=== PATIENT | female | born 1990 | race Caucasian/White ===

== ENCOUNTER → 2020-04-21 | Outpatient (CLI) | payer BC, OTHER ==
[~2020-04-21] MED LIST: IBUP-1060 PO; LIDO700A21 TP; OMEP40CA45 PO; ONDA4TAB7 PO; OXYC5CAP PO; PROM25TA10 PO
== END ==
LOC: LAB 14:00
PROVIDERS: ATTEND Surgery
DX: Z01.812 Encounter for preprocedural laboratory examination (principal); K82.8 Other specified diseases of gallbladder; Z20.828 Contact with and (suspected) exposure to other viral communicable diseases
CPT/HCPCS: U0003

== ENCOUNTER 2020-04-25 08:53 | Inpatient (IN) | payer BC, OTHER ==
[~2020-04-25] VITALS: Ht 157.5 cm; Wt 57.0 kg
[2020-04-25] VITALS (10 sets, daily range): BP systolic 93–117; BP diastolic 57–79
[~2020-04-25 08:53] MED LIST changes: +BISACODYL 10 MG SUPP.RECT. ONE; +BUPIVACAINE-EPI 0.5%-1:200000 MPF 30 ML VIAL. INJ ONE; +HEPARIN 1,000 UNIT in IV NORMAL SALINE 1,000 ML for SURG PERIOP IRR ONE; +IOHEXOL 300 MG/ML 50 ML VIAL. ONE; +IV RINGERS,LACTATED 1000ML 1,000 ML IV SCH; +LIDOCAINE 1% PF 2 ML VIAL. ID PRN; +MORPHINE SULFATE 2 MG/ML VIAL. IV PRN; +ONDANSETRON PF 4 MG/2 ML VIAL. IV PRN; +PROCHLORPERAZINE 10 MG/2 ML VIAL. IV PRN; +SURGICEL HEMOSTAT 4X8 EACH. ONE; +cefOXitin SODIUM IV Push 2 GM VIAL. IVP PRN; +fentaNYL PF VIAL 100 MCG/2 ML VIAL IV PRN
[2020-04-25] MEDS ORDERED: DEXAMETHASONE SOD PHOS 4 MG/ML VIAL ONE ×4 (08:58→15:34)
[2020-04-25] MEDS ORDERED: LIDOCAINE 2% PF 5 ML VIAL. ONE (08:58)
[2020-04-25] MEDS ORDERED: ONDANSETRON PF 4 MG/2 ML VIAL. ONE (08:58)
[2020-04-25] MEDS ORDERED: PROPOFOL 10 MG/ML (20ML) VIAL. IV ONE (08:58)
[2020-04-25] MEDS ORDERED: MIDAZOLAM HCL/PF 2 MG/2 ML VIAL. ONE (08:59)
[2020-04-25] MEDS ORDERED: SUCCINYLCHOLINE 200 MG/10 ML VIAL. ONE (08:59)
[2020-04-25] MEDS ORDERED: GLYCOPYRROLATE 1 MG/5 ML VIAL. ONE (09:00)
[2020-04-25] MEDS ORDERED: fentaNYL PF VIAL 100 MCG/2 ML VIAL ONE ×2 (09:00→13:20)
[2020-04-25] MEDS ORDERED: INSULIN LISPRO 100 UNIT/ML 3ML VIAL for OP,RR ONLY. SQ PRN (09:15)
--- NOTE | 2020-04-25 09:43 | PDOC ---
SURGICAL PROGRESS NOTE DATE: 04/25/20 TIME: 09:38 Subjective Pre-Op Note 29 yo F gastroparesis TO OR for laparoscopic versus open cholecystectomy with cholangiogram, pyloroplasty, exploration. R/R/B/A d/w pt and pt's supportive mother. Risks, including, but not limited to: bleeding, infection, damage to surrounding structures, risk of anesthesia, risk of not addressing symptoms. They appear to understand, their questions are answered and they elect to procee d. Office note reviewed and unchanged. Vital Signs Vital Signs Date Time Temp Pulse Resp B/P (MAP) Pulse Ox O2 Delivery O2 Flow Rate FiO2 04/25/20 09:34 97.3 94 18 100 97.3 04/25/20 09:31 108/61 Room Air Labs Laboratory Tests Test 04/25/20 09:20 Bedside Urine HCG, Qualitative Hcg negative (Negative) Laboratory Tests Test 04/25/20 09:20 Bedside Urine HCG, Qualitative Hcg negative (Negative) Justicifation of Admission Dx: Justifications for Admission: Justification of Admission Dx: Yes Comments: bowel surgery (pyloroplasty) MIKE PERRIN MD Apr 25, 2020 09:42
[2020-04-25] MEDS ORDERED: HYDROmorphone 2 MG/ML VIAL ONE ×2 (09:51→13:07)
[2020-04-25] MEDS ORDERED: NEOSTIGMINE METHYLSULFATE 5 MG/5 ML SYRINGE. ONE (10:16)
[2020-04-25] MEDS ORDERED: SEVOFLURANE > 120 MINUTES. IH ONE (10:17)
[2020-04-25] MEDS ORDERED: PHENYLEPHRINE in 0.9% NACL PF 1 MG/10 ML SYRINGE. IV ONE ×2 (10:23→10:29)
[2020-04-25] MEDS ORDERED: ePHEDrine PF IN SALINE 50 MG/10 ML SYRINGE. IV ONE (10:23)
[2020-04-25] MEDS ORDERED: diphenhydrAMINE 50 MG/ML VIAL ONE (10:29)
[2020-04-25] MEDS ORDERED: FAMOTIDINE 20 MG/2 ML VIAL ONE (10:29)
[2020-04-25] MEDS: HYDROmorphone 2 MG/ML VIAL IV PRN ×4 (13:13→13:54)
[2020-04-25] MEDS ORDERED: BISACODYL 10 MG SUPP.RECT. PR PRN (13:30)
[2020-04-25] MEDS ORDERED: 0.9 % SODIUM CHLORIDE 10 ML DISP.SYRIN. IV PRN (13:30)
[2020-04-25] MEDS: IV RINGERS,LACTATED 1000ML 1,000 ML IV SCH ×2 (13:30→23:30)
[2020-04-25] MEDS ORDERED: NALOXONE 0.4 MG/ML VIAL. IV PRN (13:30)
[2020-04-25] MEDS ORDERED: MORPHINE SULFATE 30 ML IV ONE (13:45)
[2020-04-25] MEDS: MORPHINE SULFATE 30 ML IV PRN ×3 (13:50→23:47)
[2020-04-25] MEDS ORDERED: PROCHLORPERAZINE 10 MG/2 ML VIAL. ONE (14:04)
--- NOTE | 2020-04-25 14:45 | NUR ---
Arrive to unit per bed from PACU. Awakens easily but falls back to sleep. No c/o pain at this time. Abdominal lap sites x's 4 are d/i with ice pack at site. NG to low suction. IVF's intact and infusing. O2 at 2l per n/c. MANAGER PLAY intact with MANAGER PLAY button within reach. ROB's and SCD's on bilaterally. Side rails up x's 2 with call light in reach. Cont. monitor.
[2020-04-25] MEDS: IV NORMAL SALINE 1000ML BAG 1,000 ML IV SCH (15:05)
--- NOTE | 2020-04-25 19:09 | NUR ---
When patient awakens she starts crying and states she is in awful pain. Reviewed morphine DRILL SHARPENER OPERATOR order in which it stated we could increase the dose from 0.5mg to 1mg if patient rates pain greater than 4 and patient has been rating her pain a 10. Pump changed at 1903 to the 1mg dose by this nurse and witness RN Marion Maldonado. Oncoming maintenance technician 2nd shift nurse aware and notified. Pump cleared. CO2 monitor intact and working properly. Will have oncoming shift monitor.
--- NOTE | 2020-04-25 20:06 | PDOC4 ---
OPERATIVE NOTE Date: Date: Apr 25, 2020 Pre-Op Diagnosis: Gastroparesis Post-Op Diagnosis: same Procedure Performed: Laparoscopic cholecystectomy with cholangiogram, pyloroplasty Surgeon: Topher Perrin Anesthesia Type: GETA plus local Blood Loss: 50 Specimans Obtained: gallbladder Findings: grossly normal gallbladder, normal cholangiogram, normal liver, normal stomach, spleen, uterus, appendix. Somewhat mobile right colon, somewhat redundant sigmoid colon, somewhat distended small bowel Complications: none Operative Note: After obtaining informed consent, patient was taken to OR, induced under GETA and prepped in the usual fashion. 5 mm port placed umbilical and RUQ, 12 port placed epigastric, all under laparoscopic guidance. Abdominal cavity was explored and noted as above. Gallbladder taken off fossa using cautery in dome down fashion. Cystic artery ligated with clips. Cystic duct only remaining structure into gallbladder. Longitudinal incision made on distal stomach and proximal duodenum using cautery, including through pylorus, approximately 5 cm. Transverse closure performed with 3 0 PDS in continuous fashion. 3 0 vicryl used to repair serosa. Repair appeared patent, without leakage and completely viable. Air inflated via NGT without air bubbles. Cholangiogram performed and demonstrated patency and no filling defects. Cystic duct ligated with clips and hemolok. Gallbladder placed in bag, delivered and sent to pathology. Copious irrigation. No evidence of bleeding or other pathology. Ports removed without bleeding. Fascia repaired with 0 vicryl. Skin repaired with 4 0 monocryl. Dressing placed. Patient tolerated procedure well and sent to PACU in stable condition. All counts correct. Wound class is 3. MIKE PERRIN MD Apr 25, 2020 20:06
[2020-04-25] MEDS: FAMOTIDINE 20 MG/2 ML VIAL IVP SCH (20:39)
--- NOTE | 2020-04-25 23:47 | NUR ---
ENTERTAINMENT USHER syringe changed verified by Murphy Camejo RN. syringe empty, no waste needed.
[2020-04-26] VITALS (7 sets, daily range): BP systolic 93–125; BP diastolic 55–77
--- NOTE | 2020-04-26 04:30 | NUR ---
Patient has rested on and off throughout night. GRAIN II FARMWORKER in reach. RN offered to ambulate Patient around hallways. Patient refused. Patient states "I'm okay" when RN asked Patient how she was doing. Patient declined any other needs at this time.
[2020-04-26] MEDS: MORPHINE SULFATE 30 ML IV PRN ×3 (05:57→18:34)
--- NOTE | 2020-04-26 05:57 | NUR ---
Morphine COOKER SODA syringe changed, verified with Murphy Camejo RN. 0 cc waste.
[2020-04-26] MEDS: HEPARIN for SUB-Q USE 5,000 UNIT/ML VIAL. SQ SCH ×3 (06:12→21:42)
[2020-04-26 07:39] LABS: CALCIUM 8.6 mg/dL (8.5-10.1); CREATININE 0.6 mg/dL (0.6-1.0); GFR 116.6; POTASSIUM 3.8 mmol/L (3.5-5.1)
--- NOTE | 2020-04-26 08:00 | NUR ---
resting in bed. up in the recliner. iv tubing was leaking and the bed linens need changing. moves slowly. ng remains patent with green fluid. Mendez to dd; patent with clear yellow urine. geophysical e logger 1 mg every 10 min-states she's comfortable if she hits it regularly. she is rating her pain 4.5.
[2020-04-26] MEDS: ONDANSETRON PF 4 MG/2 ML VIAL. IVP PRN ×3 (08:14→21:24)
[2020-04-26] MEDS: FAMOTIDINE 20 MG/2 ML VIAL IVP SCH ×2 (08:14→21:20)
[2020-04-26 08:15] LABS: BASO % 1 % (0-3); EOS # 0.2 x10^3/uL (0.0-0.7); EOS % 5 % (0-3); HEMATOCRIT 32.5 % (36.0-47.0); LYMPH # 1.1 x10^3/uL (1.0-4.8); LYMPH % 22 % (24-48); MEAN CORPUSCULAR HEMOGLOBIN 29 pg (25-35); MEAN CORPUSCULAR HGB CONC 34 g/dL (31-37); MEAN CORPUSCULAR VOLUME 87 fL (79-100); MONO # 0.4 x10^3/uL (0.0-1.1); MONO % 9 % (0-9); NEUT # 3.1 x10^3/uL (1.8-7.7); NEUT % 63 % (31-73); PLATELET COUNT 158 x10^3/uL (140-400); RED BLOOD COUNT 3.75 x10^6/uL (3.50-5.40); RED CELL DISTRIBUTION WIDTH 13.6 % (11.5-14.5); WHITE BLOOD COUNT 4.9 x10^3/uL (4.0-11.0)
--- NOTE | 2020-04-26 10:01 | PDOC ---
SURGICAL PROGRESS NOTE DATE: 04/26/20 TIME: 10:00 Subjective pain managed with MANAGER CLINICAL RESEARCH up in chair asking about picc Vital Signs Vital Signs Date Time Temp Pulse Resp B/P (MAP) Pulse Ox O2 Delivery O2 Flow Rate FiO2 04/26/20 08:00 Nasal Cannula 04/26/20 06:33 11 04/26/20 06:27 100 2.0 04/26/20 06:13 97.7 87 98/59 (72) 97.7 I&O Intake and Output 04/26/20 07:00 Intake Total 1700 ml Output Total 2325 ml Balance -625 ml Intake Oral 0 ml IV Total 1700 ml Output Urine Total 2250 ml Gastric Drainage Total 25 ml Estimated Blood Loss 50 ml General: Alert, Oriented X3, Cooperative HEENT: Other (NG in place ) Abdomen: Soft (soft, lap dresssings dry) Labs Laboratory Tests Test 04/25/20 09:20 04/25/20 14:34 04/26/20 07:00 Bedside Urine HCG, Qualitative Hcg negative (Negative) Glucose (Fingerstick) 110 mg/dL (70-99) White Blood Count 4.9 x10^3/uL (4.0-11.0) Red Blood Count 3.75 x10^6/uL (3.50-5.40) Hemoglobin 11.0 g/dL (12.0-15.5) Hematocrit 32.5 % (36.0-47.0) Mean Corpuscular Volume 87 fL (79-100) Mean Corpuscular Hemoglobin 29 pg (25-35) Mean Corpuscular Hemoglobin Concent 34 g/dL (31-37) Red Cell Distribution Width 13.6 % (11.5-14.5) Platelet Count 158 x10^3/uL (140-400) Neutrophils (%) (Auto) 63 % (31-73) Lymphocytes (%) (Auto) 22 % (24-48) Monocytes (%) (Auto) 9 % (0-9) Eosinophils (%) (Auto) 5 % (0-3) Basophils (%) (Auto) 1 % (0-3) Neutrophils # (Auto) 3.1 x10^3/uL (1.8-7.7) Lymphocytes # (Auto) 1.1 x10^3/uL (1.0-4.8) Monocytes # (Auto) 0.4 x10^3/uL (0.0-1.1) Eosinophils # (Auto) 0.2 x10^3/uL (0.0-0.7) Basophils # (Auto) 0.0 x10^3/uL (0.0-0.2) Sodium Level 139 mmol/L (136-145) Potassium Level 3.8 mmol/L (3.5-5.1) Chloride Level 102 mmol/L (98-107) Carbon Dioxide Level 29 mmol/L (21-32) Anion Gap 8 (6-14) Blood Urea Nitrogen 9 mg/dL (7-20) Creatinine 0.6 mg/dL (0.6-1.0) Estimated GFR (Cockcroft-Gault) 116.6 Glucose Level 93 mg/dL (70-99) Calcium Level 8.6 mg/dL (8.5-10.1) Laboratory Tests Test 04/25/20 14:34 04/26/20 07:00 Glucose (Fingerstick) 110 mg/dL (70-99) White Blood Count 4.9 x10^3/uL (4.0-11.0) Red Blood Count 3.75 x10^6/uL (3.50-5.40) Hemoglobin 11.0 g/dL (12.0-15.5) Hematocrit 32.5 % (36.0-47.0) Mean Corpuscular Volume 87 fL (79-100) Mean Corpuscular Hemoglobin 29 pg (25-35) Mean Corpuscular Hemoglobin Concent 34 g/dL (31-37) Red Cell Distribution Width 13.6 % (11.5-14.5) Platelet Count 158 x10^3/uL (140-400) Neutrophils (%) (Auto) 63 % (31-73) Lymphocytes (%) (Auto) 22 % (24-48) Monocytes (%) (Auto) 9 % (0-9) Eosinophils (%) (Auto) 5 % (0-3) Basophils (%) (Auto) 1 % (0-3) Neutrophils # (Auto) 3.1 x10^3/uL (1.8-7.7) Lymphocytes # (Auto) 1.1 x10^3/uL (1.0-4.8) Monocytes # (Auto) 0.4 x10^3/uL (0.0-1.1) Eosinophils # (Auto) 0.2 x10^3/uL (0.0-0.7) Basophils # (Auto) 0.0 x10^3/uL (0.0-0.2) Sodium Level 139 mmol/L (136-145) Potassium Level 3.8 mmol/L (3.5-5.1) Chloride Level 102 mmol/L (98-107) Carbon Dioxide Level 29 mmol/L (21-32) Anion Gap 8 (6-14) Blood Urea Nitrogen 9 mg/dL (7-20) Creatinine 0.6 mg/dL (0.6-1.0) Estimated GFR (Cockcroft-Gault) 116.6 Glucose Level 93 mg/dL (70-99) Calcium Level 8.6 mg/dL (8.5-10.1) Assessment/Plan continue NG, bowel rest will ask IR to look at picc Justicifation of Admission Dx: Justifications for Admission: Justification of Admission Dx: Yes DERIK SCHILLING BIG 6 DEALER Apr 26, 2020 10:01
[2020-04-26] MEDS: PHENOL ORAL SPRAY 177ML BOTTLE. PO PRN ×2 (10:11→12:13)
--- NOTE | 2020-04-26 10:22 | NUR ---
spoke with Denise for IR to check ou her PICC. It is 2 months old and has migrated 6-7 cm out. Blank would like to speak with Dr. Calero. she would like the same arm used. will sign consent after speaking with Dr. Calero. . IR informed
[2020-04-26] MEDS ORDERED: LIDOCAINE WITH 8.4% SOD BICARB 3 ML DISP.SYRIN. ONE (10:56)
[2020-04-26] MEDS ORDERED: LIDOCAINE WITH 8.4% SOD BICARB 3 ML DISP.SYRIN. INJ ONE (11:00)
--- NOTE | 2020-04-26 11:15 | RAD ---
Single view of the chest. 04/26/2020 10:06 AM Indication: Reason: Malpositioned picc line - / Spl. Instructions: / History: Comparison: None Findings: There is a right upper extremity PICC line with tip in the superior vena cava. No pneumothorax, effusion, or focal infiltrate is seen. Heart size is normal. Bony thorax is intact. IMPRESSION: Extremity PICC line tip in the SVC Electronically signed by: Don Calero MD (04/26/2020 11:13 AM) [id number]
--- NOTE | 2020-04-26 12:30 | NUR ---
returned from radiology. PICC was replaced in the same arm; she is happy about that. reconnected to NG to intermittent suction ivf and tire fixer restarted. rests in bed
[2020-04-26] MEDS: IV RINGERS,LACTATED 1000ML 1,000 ML IV SCH ×2 (12:39→21:24)
--- NOTE | 2020-04-26 15:47 | RAD ---
Exam: Fluoroscopic guided replacement right percutaneous inserted central venous catheter 04/26/2020 1:39 PM .Indication: picc eval--out of place Technique: Informed oral and written consent were obtained. The right upper extremity was prepped and draped using sterile barrier technique. All elements of maximal sterile barrier technique including the use of a cap, mask, sterile gown, sterile gloves, large sterile sheet, appropriate hand hygiene, and 2% chlorhexidine for cutaneous antisepsis (or acceptable alternative antiseptic per current guidelines) were followed for this procedure.. The pre existing catheter was short with tip in SVC. A guidewire was advanced through the picc line into the IVC. A new picc line was advanced over the wire into the right atrium. Catheter was found to flush and aspirate normally. No immediate complications are identified. FLUORO TIME: 0.9 MINUTES DOSE AREA PRODUCT: 09 Gycm2 Impression: fluoroscopically guided replacement of a right upper extremity PICC line.
--- NOTE | 2020-04-26 16:26 | NUR ---
When attempted to ambulate, her knee gave out and she started to hyperventilate and crying. Eventually got her to stand and traffic coordinator place. Encouraged to deep breathing. Attempted to calm her. Called Dr. Eason and discussed her concerns 1- changing her geriatric nurse practitioner to Dilaudid ; give her a bolus with morphine; and give her something for anxiety. orders received for PT/OT , consult Hospitalist for anxiety and medication for anxiety. Blank informed of these new orders
--- NOTE | 2020-04-26 16:59 | PDOC2 ---
CONSULT Date of Consult Date of Consult DATE: 04/26/20 TIME: 16:59 Reason for Consult Reason for Consult: Anxiety Referring Physician Referring Physician: Dr. 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 Her PICC line is replaced by IR and is functioning well the right she is currently on a morphine CREAMERY WORKER as institutionally we avoid Dilaudid CREAMERY WORKER's. I reinforced this. She does have some anxiety that was mitigated with IV Ativan. She tells me bedside that she knows how she should recover from surgery notes that she has had 8 surgeries in the past 3 years including 3 C-sections a cochlear implant and subsequent Baha removal of the right ear right elbow cubital tunnel release and 2 lysis of adhesions surgeries. She notes that her pain is currently 5 out of 10 drifts off to sleep frequently during the interview. I have asked her if she is on chronic opioids. She notes that she does not take chronic opioids. I have reviewed her prescription history and she has filled opioids multiple times in the past month at least monthly over the past year and a half through a variety of providers throughout the [facility] area. Labs reviewed and within normal limits. Past Medical History GI: Other (Gastroparesis) Past Surgical History Past Surgical History Right cubital tunnel, lysis of adhesions x2, right cochlear implant and BAHA removal. Past Surgical History: Cholecystectomy, (x3) Family History Family History: Other Social History No ALCOHOL: none Drugs: None Lives: with Family Domestic Violence: Neg Current Medications Current Medications Current Medications Heparin Sodium (Porcine) 1000 unit/Sodium Chloride 1,001 ml @ 1,001 mls/hr 1X ONCE IRR ; Start 04/25/20 at 06:00; Stop 04/25/20 at 06:59; Status DC Bupivacaine HCl/ Epinephrine Bitart (Sensorcain-Epi 0.5%-1:[id number] Mpf) 30 ml 1X ONCE INJ Last administered on 04/25/20at 10:37; Start 04/25/20 at 07:00; Stop 04/25/20 at 07:01; Status DC Ondansetron HCl (Zofran) 4 mg PRN Q6HRS PRN IV NAUSEA/VOMITING; Start 04/25/20 at 07:00; Stop 04/26/20 at 06:59; Status DC Fentanyl Citrate (Fentanyl 2ml Vial) 25 mcg PRN Q5MIN PRN IV MILD PAIN 1-3; Start 04/25/20 at 07:00; Stop 04/26/20 at 06:59; Status UNV Fentanyl Citrate (Fentanyl 2ml Vial) 50 mcg PRN Q5MIN PRN IV MODERATE TO SEVERE PAIN; Start 04/25/20 at 07:00; Stop 04/26/20 at 06:59; Status UNV Morphine Sulfate (Morphine Sulfate) 1 mg PRN Q10MIN PRN IV SEVERE PAIN 7-10; Start 04/25/20 at 07:00; Stop 04/26/20 at 06:59; Status DC Ringer's Solution 1,000 ml @ 30 mls/hr Q24H IV Last administered on 04/25/20at 09:37; Start 04/25/20 at 07:00; Stop 04/25/20 at 18:59; Status DC Lidocaine HCl (Xylocaine-Mpf 1% 2ml Vial) 2 ml PRN 1X PRN ID PRIOR TO IV START; Start 04/25/20 at 07:00; Stop 04/26/20 at 06:59; Status DC Hydromorphone HCl (Dilaudid) 0.5 mg PRN Q10MIN PRN IV SEV PAIN, Second choice Last administered on 04/25/20at 13:54; Start 04/25/20 at 07:00; Stop 04/26/20 at 06:59; Status DC Prochlorperazine Edisylate (Compazine) 5 mg PACU PRN PRN IV NAUSEA, MRX1 Last administered on 04/25/20at 14:09; Start 04/25/20 at 07:00; Stop 04/26/20 at 06:59; Status DC Cefoxitin Sodium (Mefoxin) 2 gm 1X PREOP PRN IVP PRIOR TO SURGERY Last administered on 04/25/20at 09:49; Start 04/25/20 at 08:00 Iohexol (Omnipaque 300 Mg/ml) 50 ml STK-MED ONCE .ROUTE Last administered on 04/25/20at 10:37; Start 04/25/20 at 07:27; Stop 04/25/20 at 07:27; Status DC Bisacodyl (Dulcolax Supp) 10 mg STK-MED ONCE .ROUTE ; Start 04/25/20 at 07:27; Stop 04/25/20 at 07:27; Status DC Cellulose (Surgicel Hemostat 4x8) 1 each STK-MED ONCE .ROUTE ; Start 04/25/20 at 07:30; Stop 04/25/20 at 07:31; Status DC Propofol (Diprivan) 200 mg STK-MED ONCE IV ; Start 04/25/20 at 08:58; Stop 04/25/20 at 08:58; Status DC Lidocaine HCl (Lidocaine Pf 2% Vial) 5 ml STK-MED ONCE .ROUTE ; Start 04/25/20 at 08:58; Stop 04/25/20 at 08:58; Status DC Dexamethasone Sodium Phosphate (Decadron) 4 mg STK-MED ONCE .ROUTE ; Start 04/25/20 at 08:58; Stop 04/25/20 at 08:58; Status DC Ondansetron HCl (Zofran) 4 mg STK-MED ONCE .ROUTE ; Start 04/25/20 at 08:58; Stop 04/25/20 at 08:58; Status DC Succinylcholine Chloride (Anectine) 200 mg STK-MED ONCE .ROUTE ; Start 04/25/20 at 08:59; Stop 04/25/20 at 08:59; Status DC Midazolam HCl (Versed) 2 mg STK-MED ONCE .ROUTE ; Start 04/25/20 at 08:59; Stop 04/25/20 at 09:00; Status DC Fentanyl Citrate (Fentanyl 2ml Vial) 100 mcg STK-MED ONCE .ROUTE ; Start 04/25/20 at 09:00; Stop 04/25/20 at 09:00; Status DC Glycopyrrolate (Robinul) 1 mg STK-MED ONCE .ROUTE ; Start 04/25/20 at 09:00; Stop 04/25/20 at 09:01; Status DC Insulin Human Lispro (HumaLOG VIAL for OP,RR ONLY) 0-10 units PRN Q1HR PRN SQ PER PROTOCOL; Start 04/25/20 at 09:15; Stop 04/26/20 at 09:14; Status DC Hydromorphone HCl (Dilaudid) 2 mg STK-MED ONCE .ROUTE ; Start 04/25/20 at 09:51; Stop 04/25/20 at 09:51; Status DC Neostigmine [place] (Neostigmine Methylsulfate) 5 mg STK-MED ONCE .ROUTE ; Start 04/25/20 at 10:16; Stop 04/25/20 at 10:17; Status DC Sevoflurane (Ultane) 90 ml STK-MED ONCE IH ; Start 04/25/20 at 10:17; Stop 04/25/20 at 10:17; Status DC Phenylephrine HCl (PHENYLEPHRINE in 0.9% NACL PF) 1 mg STK-MED ONCE IV ; Start 04/25/20 at 10:23; Stop 04/25/20 at 10:23; Status DC Ephedrine Sulfate (ePHEDrine PF IN SALINE SYRINGE) 50 mg STK-MED ONCE IV ; Start 04/25/20 at 10:23; Stop 04/25/20 at 10:23; Status DC Phenylephrine HCl (PHENYLEPHRINE in 0.9% NACL PF) 1 mg STK-MED ONCE IV ; Start 04/25/20 at 10:29; Stop 04/25/20 at 10:29; Status DC Diphenhydramine HCl (Benadryl) 50 mg STK-MED ONCE .ROUTE ; Start 04/25/20 at 10:29; Stop 04/25/20 at 10:29; Status DC Famotidine (Pepcid Vial) 20 mg STK-MED ONCE .ROUTE ; Start 04/25/20 at 10:29; Stop 04/25/20 at 10:29; Status DC Dexamethasone Sodium Phosphate (Decadron) 4 mg STK-MED ONCE .ROUTE ; Start 04/25/20 at 10:29; Stop 04/25/20 at 10:29; Status DC Dexamethasone Sodium Phosphate (Decadron) 4 mg STK-MED ONCE .ROUTE ; Start 04/25/20 at 10:29; Stop 04/25/20 at 10:29; Status DC Hydromorphone HCl (Dilaudid) 2 mg STK-MED ONCE .ROUTE ; Start 04/25/20 at 13:07; Stop 04/25/20 at 13:07; Status DC Fentanyl Citrate (Fentanyl 2ml Vial) 100 mcg STK-MED ONCE .ROUTE ; Start 04/25/20 at 13:20; Stop 04/25/20 at 13:20; Status DC Famotidine (Pepcid Vial) 20 mg BID IVP Last administered on 04/26/20at 08:14; Start 04/25/20 at 21:00 Heparin Sodium (Porcine) (Heparin Sodium) 5,000 unit Q8HRS SQ Last administered on 04/26/20at 14:27; Start 04/26/20 at 06:00 Sodium Chloride (Normal Saline Flush) 3 ml QSHIFT PRN IV AFTER MEDS AND BLOOD DRAWS; Start 04/25/20 at 13:30 Ringer's Solution 1,000 ml @ 100 mls/hr Q10H IV Last administered on 04/26/20at 12:39; Start 04/25/20 at 13:30 Naloxone HCl (Narcan) 0.4 mg PRN Q2MIN PRN IV SEE INSTRUCTIONS; Start 04/25/20 at 13:30 Sodium Chloride 1,000 ml @ 25 mls/hr Q24H IV Last administered on 04/25/20at 15:05; Start 04/25/20 at 13:30 Morphine Sulfate 30 ml @ 0 mls/hr CONT PRN PRN IV PER PROTOCOL Last administered on 04/26/20at 12:13; Start 04/25/20 at 13:30 Bisacodyl (Dulcolax Supp) 10 mg PRN DAILY PRN IN CONSTIPATION; Start 04/25/20 at 13:30 Ondansetron HCl (Zofran) 4 mg PRN Q6HRS PRN IVP NAUESA, 1ST CHOICE Last administered on 04/26/20at 14:41; Start 04/25/20 at 13:30 Prochlorperazine Edisylate (Compazine) 10 mg STK-MED ONCE .ROUTE ; Start 04/25/20 at 14:04; Stop 04/25/20 at 14:04; Status DC Morphine Sulfate 30 ml @ As Directed STK-MED ONCE IV ; Start 04/25/20 at 13:45; Stop 04/25/20 at 14:09; Status DC Dexamethasone Sodium Phosphate (Decadron) 4 mg STK-MED ONCE .ROUTE ; Start 04/25/20 at 15:34; Stop 04/25/20 at 15:34; Status DC Phenol (Chloraseptic) 1 spray PRN Q2HR PRN PO SORE THROAT Last administered on 04/26/20at 12:13; Start 04/26/20 at 10:00 Lidocaine HCl (Buffered Lidocaine 1%) 3 ml STK-MED ONCE .ROUTE ; Start 04/26/20 at 10:56; Stop 04/26/20 at 10:56; Status DC Lidocaine HCl (Buffered Lidocaine 1%) 6 ml 1X ONCE INJ Last administered on 04/26/20at 11:00; Start 04/26/20 at 11:00; Stop 04/26/20 at 11:01; Status DC Lorazepam (Ativan Inj) 0.5 mg PRN Q6HRS PRN IVP ANXIETY / AGITATION; Start 04/26/20 at 16:30 Haloperidol Lactate (Haldol Inj) 5 mg PRN Q6HRS PRN IVP AGITATION; Start 04/26/20 at 17:00 Olanzapine (ZyPREXA IM) 10 mg PRN DAILY PRN IM Agitation/anxiety; Start 1 06/26/19 at 17:00 Active Scripts Active Reported Lidocaine PATCH (Lidocaine) 1 Each Adh..patch 1 Each TP DAILY REMOVE AFTER 12 HOURS Promethazine Hcl 25 Mg Tablet 1 Tab PO PRN Q6HRS Omeprazole 40 Mg Capsule.dr 1 Cap PO DAILY Zofran (Ondansetron Hcl) 4 Mg Tablet 1 Tab PO PRN Q6-8HRS Oxycodone Hcl 5 Mg Capsule 5 Mg PO PRN Q6HRS PRN Ibuprofen 800 Mg Tablet 800 Mg PO PRN Q6HRS PRN Allergies Allergies: Coded Allergies: iohexol (Verified Allergy, Severe, ANAPHYLAXIS, 04/25/20) acetaminophen (Verified Allergy, Intermediate, Itching, 04/25/20) irritability fentanyl (Verified Allergy, Intermediate, Hives, 04/25/20) hydrocodone (Verified Allergy, Intermediate, Itching, 04/25/20) irritability metoclopramide (Verified Adverse Reaction, Intermediate, severe depression, 04/25/20) ROS General: No: Chills, Night Sweats, Fatigue, Malaise, Appetite, Other PSYCHOLOGICAL ROS: YES: Anxiety; No: Behavioral Disorder, Concentration difficultie, Decreased libido, Depression, Disorientation, Hallucinations, Hostility, Irritablity, Memory difficulties, Mood Swings, Obsessive thoughts, Physical abuse, Sexual abuse, Sleep disturbances, Suicidal ideation, Other Eyes: No Blurry vision, No Decreased vision, No Double vision, No Dry eyes, No Excessive tearing, No Eye Pain, No Itchy Eyes, No Loss of vision, No Photophobia, No Scotomata, No Uses contacts, No Uses glasses, No Other HEENT: No: Heacaches, Visual Changes, Hearing change, Nasal congestion, Nasal discharge, Oral lesions, Sinus pain, Sore Throat, Epistaxis, Sneezing, Snoring, Tinnitus, Vertigo, Vocal changes, Other ALLERGY AND IMMUNOLOGY: No: Hives, Insect Bite Sensitivity, Itchy/Watery Eyes, Nasal Congestion, Post Nasal Drip, Seasonal Allergies, Other Hematological and Lymphatic: No: Bleeding Problems, Blood Clots, Blood Transfusions, Brusing, Night Sweats, Pallor, Swollen Lymph Nodes, Other ENDOCRINE: No: Breast Changes, Galactorrhea, Hair Pattern Changes, Hot Flashes, Malaise/lethargy, Mood Swings, Palpitations, Polydipsia/polyuria, Skin Changes, Temperature Intolerance, Unexpected Weight Changes, Other Breast: No New/Changing Breast Lumps, No Nipple changes, No Nipple discharge, No Other Respiratory: No: Cough, Hemoptysis, Orthopnea, Pleuritic Pain, Shortness of breath, SOB with excertion, Sputum Changes, Stridor, Tachypnea, Wheezing, Other Cardiovascular: No Chest Pain, No Palpitations, No Orthopnea, No Paroxysmal Noc. Dyspnea, No Edema, No Lt Headedness, No Other Gastrointestinal: Yes Abdominal Pain; No Nausea, No Vomiting, No Diarrhea, No Constipation, No Melena, No Hematochezia, No Other Genitourinary: No Dysuria, No Frequency, No Incontinence, No Hematuria, No Retention, No Discharge, No Urgency, No Pain, No Flank Pain, No Other, No , No , No , No , No , No , No Musculoskeletal: No Gait Disturbance, No Joint Pain, No Joint Stiffness, No Joint Swelling, No Muscle Pain, No Muscular Weakness, No Pain In:, No Swelling In:, No Other Neurological: No Behavorial Changes, No Bowel/Bladder ControlChng, No Confusion, No Dizziness, No Gait Disturbance, No Headaches, No Impaired Coord/balance, No Memory Loss, No Numbness/Tingling, No Seizures, No Speech Problems, No Tremors, No Visual Changes, No Weakness, No Other Skin: No Dry Skin, No Eczema, No Hair Changes, No Lumps, No Mole Changes, No Mottling, No Nail Changes, No Pruritus, No Rash, No Skin Lesion Changes, No Other, No Acne Physical Exam General: Alert, Oriented X3, Cooperative, No acute distress HEENT: Atraumatic, PERRLA, EOMI, Mucous membr. moist/pink Lungs: Clear to auscultation, Normal air movement Heart: Regular rate, Normal S1, Normal S2, No murmurs Abdomen: Normal bowel sounds, Soft, No hepatosplenomegaly, No masses Extremities: No clubbing, No edema, Normal pulses, No tenderness/swelling Skin: No rashes, No breakdown Neuro: Normal speech, Strength at 5/5 X4 ext, Normal tone, Sensation intact, Cranial nerves 3-12 NL, Reflexes 2+ Psych/Mental Status: Mental status NL, Mood NL MUSCULOSKELETAL: No joint tenderness, No deformity, No swelling, No muscular tenderness noted, Full range of motion without pain Vitals VITALS Vital Signs Date Time Temp Pulse Resp B/P (MAP) Pulse Ox O2 Delivery O2 Flow Rate FiO2 04/26/20 14:49 105 6 113/77 (89) 100 Room Air 1.0 04/26/20 11:00 97.9 97.9 Labs Labs Laboratory Tests Test 04/25/20 09:20 04/25/20 14:34 04/26/20 07:00 Bedside Urine HCG, Qualitative Hcg negative (Negative) Glucose (Fingerstick) 110 mg/dL (70-99) White Blood Count 4.9 x10^3/uL (4.0-11.0) Red Blood Count 3.75 x10^6/uL (3.50-5.40) Hemoglobin 11.0 g/dL (12.0-15.5) Hematocrit 32.5 % (36.0-47.0) Mean Corpuscular Volume 87 fL (79-100) Mean Corpuscular Hemoglobin 29 pg (25-35) Mean Corpuscular Hemoglobin Concent 34 g/dL (31-37) Red Cell Distribution Width 13.6 % (11.5-14.5) Platelet Count 158 x10^3/uL (140-400) Neutrophils (%) (Auto) 63 % (31-73) Lymphocytes (%) (Auto) 22 % (24-48) Monocytes (%) (Auto) 9 % (0-9) Eosinophils (%) (Auto) 5 % (0-3) Basophils (%) (Auto) 1 % (0-3) Neutrophils # (Auto) 3.1 x10^3/uL (1.8-7.7) Lymphocytes # (Auto) 1.1 x10^3/uL (1.0-4.8) Monocytes # (Auto) 0.4 x10^3/uL (0.0-1.1) Eosinophils # (Auto) 0.2 x10^3/uL (0.0-0.7) Basophils # (Auto) 0.0 x10^3/uL (0.0-0.2) Sodium Level 139 mmol/L (136-145) Potassium Level 3.8 mmol/L (3.5-5.1) Chloride Level 102 mmol/L (98-107) Carbon Dioxide Level 29 mmol/L (21-32) Anion Gap 8 (6-14) Blood Urea Nitrogen 9 mg/dL (7-20) Creatinine 0.6 mg/dL (0.6-1.0) Estimated GFR (Cockcroft-Gault) 116.6 Glucose Level 93 mg/dL (70-99) Calcium Level 8.6 mg/dL (8.5-10.1) Laboratory Tests Test 04/26/20 07:00 White Blood Count 4.9 x10^3/uL (4.0-11.0) Red Blood Count 3.75 x10^6/uL (3.50-5.40) Hemoglobin 11.0 g/dL (12.0-15.5) Hematocrit 32.5 % (36.0-47.0) Mean Corpuscular Volume 87 fL (79-100) Mean Corpuscular Hemoglobin 29 pg (25-35) Mean Corpuscular Hemoglobin Concent 34 g/dL (31-37) Red Cell Distribution Width 13.6 % (11.5-14.5) Platelet Count 158 x10^3/uL (140-400) Neutrophils (%) (Auto) 63 % (31-73) Lymphocytes (%) (Auto) 22 % (24-48) Monocytes (%) (Auto) 9 % (0-9) Eosinophils (%) (Auto) 5 % (0-3) Basophils (%) (Auto) 1 % (0-3) Neutrophils # (Auto) 3.1 x10^3/uL (1.8-7.7) Lymphocytes # (Auto) 1.1 x10^3/uL (1.0-4.8) Monocytes # (Auto) 0.4 x10^3/uL (0.0-1.1) Eosinophils # (Auto) 0.2 x10^3/uL (0.0-0.7) Basophils # (Auto) 0.0 x10^3/uL (0.0-0.2) Sodium Level 139 mmol/L (136-145) Potassium Level 3.8 mmol/L (3.5-5.1) Chloride Level 102 mmol/L (98-107) Carbon Dioxide Level 29 mmol/L (21-32) Anion Gap 8 (6-14) Blood Urea Nitrogen 9 mg/dL (7-20) Creatinine 0.6 mg/dL (0.6-1.0) Estimated GFR (Cockcroft-Gault) 116.6 Glucose Level 93 mg/dL (70-99) Calcium Level 8.6 mg/dL (8.5-10.1) Assessment/Plan Assessment/Plan A/P: Gastroparesis - S/p pyloroplasty. I advised her that I could discuss basal pain control but considering her diagnosis of gastroparesis this would likely be inappropriate as one of the many causes of gastroparesis is in fact chronic opio id use. Anxiety - improved with ativan, prn zyprex and prn haldol are available as well Right ear deafness - congenital FEN - NPO PPX - SCDs FULL CODE Dispo - cont inpatient. Thank you for the consult, we will continue to follow. for any questions 23/12 TRISTIN SMITH MD Apr 26, 2020 16:59
[2020-04-26] MEDS ORDERED: HALOPERIDOL LACTATE 5 MG/ML VIAL. IVP PRN (17:00)
[2020-04-26] MEDS ORDERED: OLANZapine IM 10 MG VIAL. IM PRN (17:00)
[2020-04-26] MEDS: IV NORMAL SALINE 1000ML BAG 1,000 ML IV SCH (21:20)
[2020-04-27] MEDS ORDERED: PROCHLORPERAZINE 10 MG/2 ML VIAL. IV ONE (02:45)
[2020-04-27 03:00] VITALS: BP 91/57
[2020-04-27] MEDS: MORPHINE SULFATE 30 ML IV PRN ×2 (05:31→13:21)
[2020-04-27] MEDS: IV RINGERS,LACTATED 1000ML 1,000 ML IV SCH ×4 (06:34→21:45)
[2020-04-27] MEDS: HEPARIN for SUB-Q USE 5,000 UNIT/ML VIAL. SQ SCH ×3 (06:34→21:48)
--- NOTE | 2020-04-27 06:41 | NUR ---
pt drowsy all night, patient refused sharma out per Dr Eason's order, pt educated regarding sharma cath infection risk, but still refused ,pt ssted she don't think she'll be able to get out of bed.
[2020-04-27 07:00] VITALS: BP 95/62
[2020-04-27] MEDS: FAMOTIDINE 20 MG/2 ML VIAL IVP SCH ×2 (08:46→20:55)
[2020-04-27 11:00] VITALS: BP_SYST 139; BP_SYST 97; BP_DIAS 59; BP_DIAS 73
[2020-04-27] MEDS: IV NORMAL SALINE 1000ML BAG 1,000 ML IV SCH (13:30)
--- NOTE | 2020-04-27 14:31 | PDOC ---
SURGICAL PROGRESS NOTE DATE: 04/27/20 TIME: 14:30 Subjective Pt more awake today, nausea, no flatus Vital Signs Vital Signs Date Time Temp Pulse Resp B/P (MAP) Pulse Ox O2 Delivery O2 Flow Rate FiO2 04/27/20 13:52 Room Air 04/27/20 11:00 98.8 95 16 97/73 (81) 96 98.8 04/27/20 07:25 2.0 I&O Intake and Output 04/27/20 07:00 Intake Total 0 ml Output Total 1500 ml Balance -1500 ml Intake Oral 0 ml Output Urine Total 1100 ml Gastric Drainage Total 400 ml General: Alert, Oriented X3, Cooperative, No acute distress Abdomen: Soft, No tenderness, Other (inciisions c/d/i) Labs Laboratory Tests Test 04/25/20 14:34 04/26/20 07:00 Glucose (Fingerstick) 110 mg/dL (70-99) White Blood Count 4.9 x10^3/uL (4.0-11.0) Red Blood Count 3.75 x10^6/uL (3.50-5.40) Hemoglobin 11.0 g/dL (12.0-15.5) Hematocrit 32.5 % (36.0-47.0) Mean Corpuscular Volume 87 fL (79-100) Mean Corpuscular Hemoglobin 29 pg (25-35) Mean Corpuscular Hemoglobin Concent 34 g/dL (31-37) Red Cell Distribution Width 13.6 % (11.5-14.5) Platelet Count 158 x10^3/uL (140-400) Neutrophils (%) (Auto) 63 % (31-73) Lymphocytes (%) (Auto) 22 % (24-48) Monocytes (%) (Auto) 9 % (0-9) Eosinophils (%) (Auto) 5 % (0-3) Basophils (%) (Auto) 1 % (0-3) Neutrophils # (Auto) 3.1 x10^3/uL (1.8-7.7) Lymphocytes # (Auto) 1.1 x10^3/uL (1.0-4.8) Monocytes # (Auto) 0.4 x10^3/uL (0.0-1.1) Eosinophils # (Auto) 0.2 x10^3/uL (0.0-0.7) Basophils # (Auto) 0.0 x10^3/uL (0.0-0.2) Sodium Level 139 mmol/L (136-145) Potassium Level 3.8 mmol/L (3.5-5.1) Chloride Level 102 mmol/L (98-107) Carbon Dioxide Level 29 mmol/L (21-32) Anion Gap 8 (6-14) Blood Urea Nitrogen 9 mg/dL (7-20) Creatinine 0.6 mg/dL (0.6-1.0) Estimated GFR (Cockcroft-Gault) 116.6 Glucose Level 93 mg/dL (70-99) Calcium Level 8.6 mg/dL (8.5-10.1) Problem List s/p lap hugo, pyloroplasty d/w and appreciate hospitalists await bowel fxn encouraged minimize pain meds. Justicifation of Admission Dx: Justifications for Admission: Justification of Admission Dx: Yes MIKE PERRIN MD Apr 27, 2020 14:31
[2020-04-27 15:00] VITALS: BP 106/74
[2020-04-27] MEDS ORDERED: METHOCARBAMOL 750 MG TABLET PO PRN (15:30)
--- NOTE | 2020-04-27 15:32 | NUR ---
Pt. stated she had to use the bathroom. Refused BSC, pt ambulated to bathroom with assistance of RN and . Upon entering the bathroom, pt's knees buckled and she stated "I think I am gonna pass out". Pt. did not pass out, pt sat in chair. VS 123/73, HR 116, 97% RA. Dr. Macedo witnessed event, spoke to pt, stated he would place orders.
--- NOTE | 2020-04-27 15:40 | PDOC ---
PROGRESS NOTES Date of Service: DATE: 04/27/20 TIME: 15:39 Chief Complaint Chief Complaint Gastroparesis - S/p pyloroplasty. I advised her that I could discuss basal pain control but considering her diagnosis of gastroparesis this would likely be inappropriate as one of the many causes of gastroparesis is in fact chronic opioid use. Anxiety - improved with ativan, prn zyprex and prn haldol are available as well Right ear deafness - congenital Headache: We will provide symptomatic relief Compazine and muscle relaxant since it seems to be cervical cephalalgia FEN - NPO PPX - SCDs FULL CODE Dispo - cont inpatient. History of Present Illness History of Present Illness 04/27/2020: Patient sitting in chair in moderate distress. Patient has an NG tube in place. Agree with Dr. Ring's assessment and for gastroparesis will certainly not improve if she continues to take narcotic medication. Reassurance has been provided discussed with RN at bedside Vitals Vitals Vital Signs Date Time Temp Pulse Resp B/P (MAP) Pulse Ox O2 Delivery O2 Flow Rate FiO2 04/27/20 13:52 Room Air 04/27/20 11:00 98.8 95 16 97/73 (81) 96 98.8 04/27/20 07:25 2.0 Physical Exam General: Alert, Oriented X3, Cooperative, No acute distress Heart: Regular rate, Normal S1, Normal S2, No murmurs Abdomen: Soft, No tenderness, Other (inciisions c/d/i) Extremities: No clubbing, No edema, Normal pulses, No tenderness/swelling Skin: No rashes, No breakdown Comment Review of Relevant I have reviewed the following items yessy (where applicable) has been applied. Labs Laboratory Tests Test 04/26/20 07:00 White Blood Count 4.9 x10^3/uL (4.0-11.0) Red Blood Count 3.75 x10^6/uL (3.50-5.40) Hemoglobin 11.0 g/dL (12.0-15.5) Hematocrit 32.5 % (36.0-47.0) Mean Corpuscular Volume 87 fL (79-100) Mean Corpuscular Hemoglobin 29 pg (25-35) Mean Corpuscular Hemoglobin Concent 34 g/dL (31-37) Red Cell Distribution Width 13.6 % (11.5-14.5) Platelet Count 158 x10^3/uL (140-400) Neutrophils (%) (Auto) 63 % (31-73) Lymphocytes (%) (Auto) 22 % (24-48) Monocytes (%) (Auto) 9 % (0-9) Eosinophils (%) (Auto) 5 % (0-3) Basophils (%) (Auto) 1 % (0-3) Neutrophils # (Auto) 3.1 x10^3/uL (1.8-7.7) Lymphocytes # (Auto) 1.1 x10^3/uL (1.0-4.8) Monocytes # (Auto) 0.4 x10^3/uL (0.0-1.1) Eosinophils # (Auto) 0.2 x10^3/uL (0.0-0.7) Basophils # (Auto) 0.0 x10^3/uL (0.0-0.2) Sodium Level 139 mmol/L (136-145) Potassium Level 3.8 mmol/L (3.5-5.1) Chloride Level 102 mmol/L (98-107) Carbon Dioxide Level 29 mmol/L (21-32) Anion Gap 8 (6-14) Blood Urea Nitrogen 9 mg/dL (7-20) Creatinine 0.6 mg/dL (0.6-1.0) Estimated GFR (Cockcroft-Gault) 116.6 Glucose Level 93 mg/dL (70-99) Calcium Level 8.6 mg/dL (8.5-10.1) Medications Current Medications Heparin Sodium (Porcine) 1000 unit/Sodium Chloride 1,001 ml @ 1,001 mls/hr 1X ONCE IRR ; Start 04/25/20 at 06:00; Stop 04/25/20 at 06:59; Status DC Bupivacaine HCl/ Epinephrine Bitart (Sensorcain-Epi 0.5%-1:406467 Mpf) 30 ml 1X ONCE INJ Last administered on 04/25/20at 10:37; Start 04/25/20 at 07:00; Stop 04/25/20 at 07:01; Status DC Ondansetron HCl (Zofran) 4 mg PRN Q6HRS PRN IV NAUSEA/VOMITING; Start 04/25/20 at 07:00; Stop 04/26/20 at 06:59; Status DC Fentanyl Citrate (Fentanyl 2ml Vial) 25 mcg PRN Q5MIN PRN IV MILD PAIN 1-3; Start 04/25/20 at 07:00; Stop 04/26/20 at 06:59; Status UNV Fentanyl Citrate (Fentanyl 2ml Vial) 50 mcg PRN Q5MIN PRN IV MODERATE TO SEVERE PAIN; Start 04/25/20 at 07:00; Stop 04/26/20 at 06:59; Status UNV Morphine Sulfate (Morphine Sulfate) 1 mg PRN Q10MIN PRN IV SEVERE PAIN 7-10; Start 04/25/20 at 07:00; Stop 04/26/20 at 06:59; Status DC Ringer's Solution 1,000 ml @ 30 mls/hr Q24H IV Last administered on 04/25/20at 09:37; Start 04/25/20 at 07:00; Stop 04/25/20 at 18:59; Status DC Lidocaine HCl (Xylocaine-Mpf 1% 2ml Vial) 2 ml PRN 1X PRN ID PRIOR TO IV START; Start 04/25/20 at 07:00; Stop 04/26/20 at 06:59; Status DC Hydromorphone HCl (Dilaudid) 0.5 mg PRN Q10MIN PRN IV SEV PAIN, Second choice Last administered on 04/25/20at 13:54; Start 04/25/20 at 07:00; Stop 04/26/20 at 06:59; Status DC Prochlorperazine Edisylate (Compazine) 5 mg PACU PRN PRN IV NAUSEA, MRX1 Last administered on 04/25/20at 14:09; Start 04/25/20 at 07:00; Stop 04/26/20 at 06:59; Status DC Cefoxitin Sodium (Mefoxin) 2 gm 1X PREOP PRN IVP PRIOR TO SURGERY Last administered on 04/25/20at 09:49; Start 04/25/20 at 08:00; Stop 04/27/20 at 11:06; Status DC Iohexol (Omnipaque 300 Mg/ml) 50 ml STK-MED ONCE .ROUTE Last administered on 04/25/20at 10:37; Start 04/25/20 at 07:27; Stop 04/25/20 at 07:27; Status DC Bisacodyl (Dulcolax Supp) 10 mg STK-MED ONCE .ROUTE ; Start 04/25/20 at 07:27; Stop 04/25/20 at 07:27; Status DC Cellulose (Surgicel Hemostat 4x8) 1 each STK-MED ONCE .ROUTE ; Start 04/25/20 at 07:30; Stop 04/25/20 at 07:31; Status DC Propofol (Diprivan) 200 mg STK-MED ONCE IV ; Start 04/25/20 at 08:58; Stop 04/25/20 at 08:58; Status DC Lidocaine HCl (Lidocaine Pf 2% Vial) 5 ml STK-MED ONCE .ROUTE ; Start 04/25/20 at 08:58; Stop 04/25/20 at 08:58; Status DC Dexamethasone Sodium Phosphate (Decadron) 4 mg STK-MED ONCE .ROUTE ; Start at 08:58; Stop 04/25/20 at 08:58; Status DC Ondansetron HCl (Zofran) 4 mg STK-MED ONCE .ROUTE ; Start 04/25/20 at 08:58; Stop 04/25/20 at 08:58; Status DC Succinylcholine Chloride (Anectine) 200 mg STK-MED ONCE .ROUTE ; Start 04/25/20 at 08:59; Stop 04/25/20 at 08:59; Status DC Midazolam HCl (Versed) 2 mg STK-MED ONCE .ROUTE ; Start 04/25/20 at 08:59; Stop 04/25/20 at 09:00; Status DC Fentanyl Citrate (Fentanyl 2ml Vial) 100 mcg STK-MED ONCE .ROUTE ; Start 04/25/20 at 09:00; Stop 04/25/20 at 09:00; Status DC Glycopyrrolate (Robinul) 1 mg STK-MED ONCE .ROUTE ; Start 04/25/20 at 09:00; Stop 04/25/20 at 09:01; Status DC Insulin Human Lispro (HumaLOG VIAL for OP,RR ONLY) 0-10 units PRN Q1HR PRN SQ PER PROTOCOL; Start 04/25/20 at 09:15; Stop 04/26/20 at 09:14; Status DC Hydromorphone HCl (Dilaudid) 2 mg STK-MED ONCE .ROUTE ; Start 04/25/20 at 09:51; Stop 04/25/20 at 09:51; Status DC Neostigmine [place] (Neostigmine Methylsulfate) 5 mg STK-MED ONCE .ROUTE ; Start 04/25/20 at 10:16; Stop 04/25/20 at 10:17; Status DC Sevoflurane (Ultane) 90 ml STK-MED ONCE IH ; Start 04/25/20 at 10:17; Stop 04/25/20 at 10:17; Status DC Phenylephrine HCl (PHENYLEPHRINE in 0.9% NACL PF) 1 mg STK-MED ONCE IV ; Start 04/25/20 at 10:23; Stop 04/25/20 at 10:23; Status DC Ephedrine Sulfate (ePHEDrine PF IN SALINE SYRINGE) 50 mg STK-MED ONCE IV ; Start 04/25/20 at 10:23; Stop 04/25/20 at 10:23; Status DC Phenylephrine HCl (PHENYLEPHRINE in 0.9% NACL PF) 1 mg STK-MED ONCE IV ; Start 04/25/20 at 10:29; Stop 04/25/20 at 10:29; Status DC Diphenhydramine HCl (Benadryl) 50 mg STK-MED ONCE .ROUTE ; Start 04/25/20 at 10:29; Stop 04/25/20 at 10:29; Status DC Famotidine (Pepcid Vial) 20 mg STK-MED ONCE .ROUTE ; Start 04/25/20 at 10:29; Stop 04/25/20 at 10:29; Status DC Dexamethasone Sodium Phosphate (Decadron) 4 mg STK-MED ONCE .ROUTE ; Start 04/25/20 at 10:29; Stop 04/25/20 at 10:29; Status DC Dexamethasone Sodium Phosphate (Decadron) 4 mg STK-MED ONCE .ROUTE ; Start 04/25/20 at 10:29; Stop 04/25/20 at 10:29; Status DC Hydromorphone HCl (Dilaudid) 2 mg STK-MED ONCE .ROUTE ; Start 04/25/20 at 13:07; Stop 04/25/20 at 13:07; Status DC Fentanyl Citrate (Fentanyl 2ml Vial) 100 mcg STK-MED ONCE .ROUTE ; Start 04/25/20 at 13:20; Stop 04/25/20 at 13:20; Status DC Famotidine (Pepcid Vial) 20 mg BID IVP Last administered on 04/27/20at 08:46; Start 04/25/20 at 21:00 Heparin Sodium (Porcine) (Heparin Sodium) 5,000 unit Q8HRS SQ Last administered on 04/27/20at 14:11; Start 04/26/20 at 06:00 Sodium Chloride (Normal Saline Flush) 3 ml QSHIFT PRN IV AFTER MEDS AND BLOOD DRAWS; Start 04/25/20 at 13:30 Ringer's Solution 1,000 ml @ 125 mls/hr Q8H IV Last administered on 04/27/20at 14:07; Start 04/25/20 at 13:30 Naloxone HCl (Narcan) 0.4 mg PRN Q2MIN PRN IV SEE INSTRUCTIONS; Start 04/25/20 at 13:30 Sodium Chloride 1,000 ml @ 25 mls/hr Q24H IV Last administered on 04/26/20at 21:20; Start 04/25/20 at 13:30 Morphine Sulfate 30 ml @ 0 mls/hr CONT PRN PRN IV PER PROTOCOL Last administered on 04/27/20at 13:21; Start 04/25/20 at 13:30 Bisacodyl (Dulcolax Supp) 10 mg PRN DAILY PRN IN CONSTIPATION; Start 04/25/20 at 13:30 Ondansetron HCl (Zofran) 4 mg PRN Q6HRS PRN IVP NAUESA, 1ST CHOICE Last administered on 04/26/20at 21:24; Start 04/25/20 at 13:30 Prochlorperazine Edisylate (Compazine) 10 mg STK-MED ONCE .ROUTE ; Start 04/25/20 at 14:04; Stop 04/25/20 at 14:04; Status DC Morphine Sulfate 30 ml @ As Directed STK-MED ONCE IV ; Start 04/25/20 at 13:45; Stop 04/25/20 at 14:09; Status DC Dexamethasone Sodium Phosphate (Decadron) 4 mg STK-MED ONCE .ROUTE ; Start 04/25/20 at 15:34; Stop 04/25/20 at 15:34; Status DC Phenol (Chloraseptic) 1 spray PRN Q2HR PRN PO SORE THROAT Last administered on 04/26/20at 12:13; Start 04/26/20 at 10:00 Lidocaine HCl (Buffered Lidocaine 1%) 3 ml STK-MED ONCE .ROUTE ; Start 04/26/20 at 10:56; Stop 04/26/20 at 10:56; Status DC Lidocaine HCl (Buffered Lidocaine 1%) 6 ml 1X ONCE INJ Last administered on 04/26/20at 11:00; Start 04/26/20 at 11:00; Stop 04/26/20 at 11:01; Status DC Lorazepam (Ativan Inj) 0.5 mg PRN Q6HRS PRN IVP ANXIETY / AGITATION Last administered on 04/26/20at 17:06; Start 04/26/20 at 16:30 Haloperidol Lactate (Haldol Inj) 5 mg PRN Q6HRS PRN IVP AGITATION; Start 04/26/20 at 17:00 Olanzapine (ZyPREXA IM) 10 mg PRN DAILY PRN IM Agitation/anxiety; Start 04/26/20 at 17:00 Prochlorperazine Edisylate (Compazine) 10 mg 1X ONCE IV Last administered on 04/27/20at 02:58; Start 04/27/20 at 02:45; Stop 04/27/20 at 02:53; Status DC Methocarbamol (Robaxin) 750 mg TID PRN PO MUSCLE SPASMS; Start 04/27/20 at 15:30 Prochlorperazine Edisylate (Compazine) 10 mg PRN Q6HRS PRN IV NAUSEA/VOMITING, 2nd CHOICE; Start 04/27/20 at 15:45 Active Scripts Active Reported Lidocaine PATCH (Lidocaine) 1 Each Adh..patch 1 Each TP DAILY REMOVE AFTER 12 HOURS Promethazine Hcl 25 Mg Tablet 1 Tab PO PRN Q6HRS Omeprazole 40 Mg Capsule.dr 1 Cap PO DAILY Zofran (Ondansetron Hcl) 4 Mg Tablet 1 Tab PO PRN Q6-8HRS Oxycodone Hcl 5 Mg Capsule 5 Mg PO PRN Q6HRS PRN Ibuprofen 800 Mg Tablet 800 Mg PO PRN Q6HRS PRN Vitals/I & O Vital Sign - Last 24 Hours 04/26/20 04/26/20 04/26/20 04/26/20 18:34 18:48 19:00 19:04 Temp 98.3 98.2 98.3 98.2 Pulse 96 80 Resp 16 16 18 20 B/P (MAP) 93/66 (75) 98/61 (73) Pulse Ox 98 98 97 97 O2 Delivery Room Air Room Air Room Air Nasal Cannula O2 Flow Rate 2.0 04/26/20 04/26/20 04/27/20 04/27/20 20:00 23:00 03:00 05:31 Temp 99.3 98.0 99.3 98.0 Pulse 102 96 Resp 18 18 16 B/P (MAP) 104/61 (75) 91/57 (68) Pulse Ox 96 96 96 O2 Delivery Nasal Cannula Room Air Room Air Nasal Cannula 04/27/20 04/27/20 04/27/20 04/27/20 06:01 07:00 07:25 11:00 Temp 99.3 98.8 99.3 98.8 Pulse 100 95 Resp 16 16 16 B/P (MAP) 95/62 (73) 97/73 (81) Pulse Ox 96 98 96 O2 Delivery Room Air Room Air Nasal Cannula Room Air O2 Flow Rate 2.0 04/27/20 04/27/20 13:21 13:52 O2 Delivery Room Air Room Air Intake and Output 04/26/20 04/26/20 04/27/20 15:00 23:00 07:00 Intake Total 0 ml 0 ml 0 ml Output Total 1250 ml 250 ml Balance 0 ml -1250 ml -250 ml Justicifation of Admission Dx: Justifications for Admission: Justification of Admission Dx: Yes FRANK DOUGHERTY MD Apr 27, 2020 15:40
[2020-04-27] MEDS ORDERED: PROCHLORPERAZINE 10 MG/2 ML VIAL. IV PRN (15:45)
[2020-04-27 19:16] VITALS: BP 110/73
[2020-04-27] MEDS: ONDANSETRON PF 4 MG/2 ML VIAL. IVP PRN (21:02)
[2020-04-27 23:08] VITALS: BP 99/58
[2020-04-28] MEDS: MORPHINE SULFATE 30 ML IV PRN (01:22)
[2020-04-28 03:10] VITALS: BP 103/61
[2020-04-28] MEDS: IV RINGERS,LACTATED 1000ML 1,000 ML IV SCH ×2 (06:22→15:15)
[2020-04-28] MEDS: HEPARIN for SUB-Q USE 5,000 UNIT/ML VIAL. SQ SCH ×2 (06:25→14:44)
[2020-04-28 07:00] VITALS: BP 108/71
[2020-04-28] MEDS: FAMOTIDINE 20 MG/2 ML VIAL IVP SCH (08:29)
[2020-04-28 11:00] VITALS: BP 102/64
--- NOTE | 2020-04-28 12:20 | RAD ---
EXAM: KUB 04/28/2020 12:01 PM CLINICAL INDICATION:Verify NG placement. COMPARISON:Chest radiograph 04/26/2020 TECHNIQUE:AP view of the lower chest and upper abdomen FINDINGS:There is a nasogastric tube with tip in the gastric body. Surgical clips are seen in the right upper quadrant. Lung bases are clear and heart is normal in size. IMPRESSION:Nasogastric tube terminating in the gastric body. Electronically signed by: Anne Marie Collins MD (04/28/2020 12:17 PM) [id number]
--- NOTE | 2020-04-28 12:34 | NUR ---
Paged Dr. Eason regarding patient complain of NG tube moved and she is in pain. KUB result show NG in placed. Ordered received to clamp NG tube at this time and Dr. Eason will see patient
--- NOTE | 2020-04-28 13:19 | PDOC ---
PROGRESS NOTES Date of Service: DATE: 04/28/20 TIME: 13:18 Chief Complaint Chief Complaint Gastroparesis - S/p pyloroplasty. I advised her that I could discuss basal pain control but considering her diagnosis of gastroparesis this would likely be inappropriate as one of the many causes of gastroparesis is in fact chronic opioid use. Anxiety - improved with ativan, prn zyprex and prn haldol are available as well Right ear deafness - congenital Headache: We will provide symptomatic relief Compazine and muscle relaxant since it seems to be cervical cephalalgia FEN - NPO PPX - SCDs FULL CODE Dispo - cont inpatient. History of Present Illness History of Present Illness 04/27/2020: Patient sitting in chair in moderate distress. Patient has an NG tube in place. Agree with Dr. Ring's assessment and for gastroparesis will certainly not improve if she continues to take narcotic medication. Reassurance has been provided discussed with RN at bedside 04/28/2020: Patient complaining of discomfort from NG tube. Reassurance has been provided tube seems to be in appropriate placement awaiting for imaging studies to be reported, I have asked nursing staff to contact surgical attending to address NG tube since the patient is requesting removal. Vitals Vitals Vital Signs Date Time Temp Pulse Resp B/P (MAP) Pulse Ox O2 Delivery O2 Flow Rate FiO2 04/28/20 11:00 98.2 93 18 102/64 (77) 98 Room Air 98.2 04/28/20 08:10 2.0 Physical Exam General: Alert, Oriented X3, Cooperative, No acute distress Heart: Regular rate, Normal S1, Normal S2, No murmurs Abdomen: Soft, No tenderness, Other (inciisions c/d/i) Extremities: No clubbing, No edema, Normal pulses, No tenderness/swelling Skin: No rashes, No breakdown Comment Review of Relevant I have reviewed the following items yessy (where applicable) has been applied. Medications Current Medications Heparin Sodium (Porcine) 1000 unit/Sodium Chloride 1,001 ml @ 1,001 mls/hr 1X ONCE IRR ; Start 04/25/20 at 06:00; Stop 04/25/20 at 06:59; Status DC Bupivacaine HCl/ Epinephrine Bitart (Sensorcain-Epi 0.5%-1:887692 Mpf) 30 ml 1X ONCE INJ Last administered on 04/25/20at 10:37; Start 04/25/20 at 07:00; Stop 04/25/20 at 07:01; Status DC Ondansetron HCl (Zofran) 4 mg PRN Q6HRS PRN IV NAUSEA/VOMITING; Start 04/25/20 at 07:00; Stop 04/26/20 at 06:59; Status DC Fentanyl Citrate (Fentanyl 2ml Vial) 25 mcg PRN Q5MIN PRN IV MILD PAIN 1-3; Start 04/25/20 at 07:00; Stop 04/26/20 at 06:59; Status UNV Fentanyl Citrate (Fentanyl 2ml Vial) 50 mcg PRN Q5MIN PRN IV MODERATE TO SEVERE PAIN; Start 04/25/20 at 07:00; Stop 04/26/20 at 06:59; Status UNV Morphine Sulfate (Morphine Sulfate) 1 mg PRN Q10MIN PRN IV SEVERE PAIN 7-10; Start 04/25/20 at 07:00; Stop 04/26/20 at 06:59; Status DC Ringer's Solution 1,000 ml @ 30 mls/hr Q24H IV Last administered on 04/25/20at 09:37; Start 04/25/20 at 07:00; Stop 04/25/20 at 18:59; Status DC Lidocaine HCl (Xylocaine-Mpf 1% 2ml Vial) 2 ml PRN 1X PRN ID PRIOR TO IV START; Start 04/25/20 at 07:00; Stop 04/26/20 at 06:59; Status DC Hydromorphone HCl (Dilaudid) 0.5 mg PRN Q10MIN PRN IV SEV PAIN, Second choice Last administered on 04/25/20at 13:54; Start 04/25/20 at 07:00; Stop 04/26/20 at 06:59; Status DC Prochlorperazine Edisylate (Compazine) 5 mg PACU PRN PRN IV NAUSEA, MRX1 Last administered on 04/25/20at 14:09; Start 04/25/20 at 07:00; Stop 04/26/20 at 06:59; Status DC Cefoxitin Sodium (Mefoxin) 2 gm 1X PREOP PRN IVP PRIOR TO SURGERY Last administered on 04/25/20at 09:49; Start 04/25/20 at 08:00; Stop 04/27/20 at 11:06; Status DC Iohexol (Omnipaque 300 Mg/ml) 50 ml STK-MED ONCE .ROUTE Last administered on 04/25/20at 10:37; Start 04/25/20 at 07:27; Stop 04/25/20 at 07:27; Status DC Bisacodyl (Dulcolax Supp) 10 mg STK-MED ONCE .ROUTE ; Start 04/25/20 at 07:27; Stop 04/25/20 at 07:27; Status DC Cellulose (Surgicel Hemostat 4x8) 1 each STK-MED ONCE .ROUTE ; Start 04/25/20 at 07:30; Stop 04/25/20 at 07:31; Status DC Propofol (Diprivan) 200 mg STK-MED ONCE IV ; Start 04/25/20 at 08:58; Stop 04/25/20 at 08:58; Status DC Lidocaine HCl (Lidocaine Pf 2% Vial) 5 ml STK-MED ONCE .ROUTE ; Start 04/25/20 at 08:58; Stop 04/25/20 at 08:58; Status DC Dexamethasone Sodium Phosphate (Decadron) 4 mg STK-MED ONCE .ROUTE ; Start 04/25/20 at 08:58; Stop 04/25/20 at 08:58; Status DC Ondansetron HCl (Zofran) 4 mg STK-MED ONCE .ROUTE ; Start 04/25/20 at 08:58; Stop 04/25/20 at 08:58; Status DC Succinylcholine Chloride (Anectine) 200 mg STK-MED ONCE .ROUTE ; Start 04/25/20 at 08:59; Stop 04/25/20 at 08:59; Status DC Midazolam HCl (Versed) 2 mg STK-MED ONCE .ROUTE ; Start 04/25/20 at 08:59; Stop 04/25/20 at 09:00; Status DC Fentanyl Citrate (Fentanyl 2ml Vial) 100 mcg STK-MED ONCE .ROUTE ; Start 04/25/20 at 09:00; Stop 04/25/20 at 09:00; Status DC Glycopyrrolate (Robinul) 1 mg STK-MED ONCE .ROUTE ; Start 04/25/20 at 09:00; Stop 04/25/20 at 09:01; Status DC Insulin Human Lispro (HumaLOG VIAL for OP,RR ONLY) 0-10 units PRN Q1HR PRN SQ PER PROTOCOL; Start 04/25/20 at 09:15; Stop 04/26/20 at 09:14; Status DC Hydromorphone HCl (Dilaudid) 2 mg STK-MED ONCE .ROUTE ; Start 04/25/20 at 09:51; Stop 04/25/20 at 09:51; Status DC Neostigmine [place] (Neostigmine Methylsulfate) 5 mg STK-MED ONCE .ROUTE ; Start 04/25/20 at 10:16; Stop 04/25/20 at 10:17; Status DC Sevoflurane (Ultane) 90 ml STK-MED ONCE IH ; Start 04/25/20 at 10:17; Stop 04/25/20 at 10:17; Status DC Phenylephrine HCl (PHENYLEPHRINE in 0.9% NACL PF) 1 mg STK-MED ONCE IV ; Start 04/25/20 at 10:23; Stop 04/25/20 at 10:23; Status DC Ephedrine Sulfate (ePHEDrine PF IN SALINE SYRINGE) 50 mg STK-MED ONCE IV ; Start 04/25/20 at 10:23; Stop 04/25/20 at 10:23; Status DC Phenylephrine HCl (PHENYLEPHRINE in 0.9% NACL PF) 1 mg STK-MED ONCE IV ; Start 04/25/20 at 10:29; Stop 04/25/20 at 10:29; Status DC Diphenhydramine HCl (Benadryl) 50 mg STK-MED ONCE .ROUTE ; Start 04/25/20 at 10:29; Stop 04/25/20 at 10:29; Status DC Famotidine (Pepcid Vial) 20 mg STK-MED ONCE .ROUTE ; Start 04/25/20 at 10:29; Stop 04/25/20 at 10:29; Status DC Dexamethasone Sodium Phosphate (Decadron) 4 mg STK-MED ONCE .ROUTE ; Start 04/25/20 at 10:29; Stop 04/25/20 at 10:29; Status DC Dexamethasone Sodium Phosphate (Decadron) 4 mg STK-MED ONCE .ROUTE ; Start 04/25/20 at 10:29; Stop 04/25/20 at 10:29; Status DC Hydromorphone HCl (Dilaudid) 2 mg STK-MED ONCE .ROUTE ; Start 04/25/20 at 13:07; Stop 04/25/20 at 13:07; Status DC Fentanyl Citrate (Fentanyl 2ml Vial) 100 mcg STK-MED ONCE .ROUTE ; Start 04/25/20 at 13:20; Stop 04/25/20 at 13:20; Status DC Famotidine (Pepcid Vial) 20 mg BID IVP Last administered on 04/28/20at 08:29; Start 04/25/20 at 21:00 Heparin Sodium (Porcine) (Heparin Sodium) 5,000 unit Q8HRS SQ Last administered on 04/28/20at 06:25; Start 04/26/20 at 06:00 Sodium Chloride (Normal Saline Flush) 3 ml QSHIFT PRN IV AFTER MEDS AND BLOOD DRAWS; Start 04/25/20 at 13:30 Ringer's Solution 1,000 ml @ 125 mls/hr Q8H IV Last administered on 04/28/20at 06:22; Start 04/25/20 at 13:30 Naloxone HCl (Narcan) 0.4 mg PRN Q2MIN PRN IV SEE INSTRUCTIONS; Start 04/25/20 at 13:30 Sodium Chloride 1,000 ml @ 25 mls/hr Q24H IV Last administered on 04/26/20at 21:20; Start 04/25/20 at 13:30 Morphine Sulfate 30 ml @ 0 mls/hr CONT PRN PRN IV PER PROTOCOL Last administered on 04/28/20at 01:22; Start 04/25/20 at 13:30 Bisacodyl (Dulcolax Supp) 10 mg PRN DAILY PRN ME CONSTIPATION; Start 04/25/20 at 13:30 Ondansetron HCl (Zofran) 4 mg PRN Q6HRS PRN IVP NAUESA, 1ST CHOICE Last admini stered on 04/27/20at 21:02; Start 04/25/20 at 13:30 Prochlorperazine Edisylate (Compazine) 10 mg STK-MED ONCE .ROUTE ; Start 1 06/25/19 at 14:04; Stop 04/25/20 at 14:04; Status DC Morphine Sulfate 30 ml @ As Directed STK-MED ONCE IV ; Start 04/25/20 at 13:45; Stop 04/25/20 at 14:09; Status DC Dexamethasone Sodium Phosphate (Decadron) 4 mg STK-MED ONCE .ROUTE ; Start 04/25/20 at 15:34; Stop 04/25/20 at 15:34; Status DC Phenol (Chloraseptic) 1 spray PRN Q2HR PRN PO SORE THROAT Last administered on 04/26/20at 12:13; Start 04/26/20 at 10:00 Lidocaine HCl (Buffered Lidocaine 1%) 3 ml STK-MED ONCE .ROUTE ; Start 04/26/20 at 10:56; Stop 04/26/20 at 10:56; Status DC Lidocaine HCl (Buffered Lidocaine 1%) 6 ml 1X ONCE INJ Last administered on 04/26/20at 11:00; Start 04/26/20 at 11:00; Stop 04/26/20 at 11:01; Status DC Lorazepam (Ativan Inj) 0.5 mg PRN Q6HRS PRN IVP ANXIETY / AGITATION Last administered on 04/28/20at 04:35; Start 04/26/20 at 16:30 Haloperidol Lactate (Haldol Inj) 5 mg PRN Q6HRS PRN IVP AGITATION; Start 04/26/20 at 17:00 Olanzapine (ZyPREXA IM) 10 mg PRN DAILY PRN IM Agitation/anxiety; Start 04/26/20 at 17:00 Prochlorperazine Edisylate (Compazine) 10 mg 1X ONCE IV Last administered on 04/27/20at 02:58; Start 04/27/20 at 02:45; Stop 04/27/20 at 02:53; Status DC Methocarbamol (Robaxin) 750 mg TID PRN PO MUSCLE SPASMS Last administered on 04/27/20at 20:06; Start 04/27/20 at 15:30 Prochlorperazine Edisylate (Compazine) 10 mg PRN Q6HRS PRN IV NAUSEA/VOMITING, 2nd CHOICE Last administered on 04/27/20at 16:06; Start 04/27/20 at 15:45 Active Scripts Active Reported Lidocaine PATCH (Lidocaine) 1 Each Adh..patch 1 Each TP DAILY REMOVE AFTER 12 HOURS Promethazine Hcl 25 Mg Tablet 1 Tab PO PRN Q6HRS Omeprazole 40 Mg Capsule.dr 1 Cap PO DAILY Zofran (Ondansetron Hcl) 4 Mg Tablet 1 Tab PO PRN Q6-8HRS Oxycodone Hcl 5 Mg Capsule 5 Mg PO PRN Q6HRS PRN Ibuprofen 800 Mg Tablet 800 Mg PO PRN Q6HRS PRN Vitals/I & O Vital Sign - Last 24 Hours 04/27/20 04/27/20 04/27/20 04/27/20 13:21 13:52 15:00 19:16 Temp 98.4 98.9 98.4 98.9 Pulse 102 103 Resp 18 14 B/P (MAP) 106/74 (85) 110/73 (85) Pulse Ox 97 99 O2 Delivery Room Air Room Air Room Air Room Air 04/27/20 04/27/20 04/28/20 04/28/20 20:05 23:08 01:22 01:52 Temp 99.5 99.5 Pulse 94 Resp 16 20 0 B/P (MAP) 99/58 (72) Pulse Ox 95 O2 Delivery Nasal Cannula Room Air Room Air Room Air 04/28/20 04/28/20 04/28/20 04/28/20 03:10 07:00 08:10 11:00 Temp 98.4 98.5 98.2 98.4 98.5 98.2 Pulse 18 81 93 Resp 16 18 18 B/P (MAP) 103/61 (75) 108/71 (83) 102/64 (77) Pulse Ox 95 97 98 O2 Delivery Room Air Room Air Room Air Room Air O2 Flow Rate 2.0 Intake and Output 04/27/20 04/27/20 04/28/20 15:00 23:00 07:00 Intake Total 3050 ml Output Total 400 ml 600 ml Balance -400 ml 2450 ml Justicifation of Admission Dx: Justifications for Admission: Justification of Admission Dx: Yes FRANK DOUGHERTY MD Apr 28, 2020 13:19
[2020-04-28] MEDS: IV NORMAL SALINE 1000ML BAG 1,000 ML IV SCH (13:30)
[2020-04-28 15:00] VITALS: BP 107/77
[2020-04-28] MEDS: ONDANSETRON PF 4 MG/2 ML VIAL. IVP PRN (15:03)
--- NOTE | 2020-04-28 16:23 | PDOC ---
SURGICAL PROGRESS NOTE DATE: 04/28/20 TIME: 16:22 Subjective Pt with c/o chronic nausea, no emesis, amanda NGT clamped, main c/o is NGT, no flatus or stool Vital Signs Vital Signs Date Time Temp Pulse Resp B/P (MAP) Pulse Ox O2 Delivery O2 Flow Rate FiO2 04/28/20 15:00 98.7 109 18 107/77 (87) 100 Room Air 98.7 04/28/20 08:10 2.0 I&O Intake and Output 04/28/20 07:00 Intake Total 3050 ml Output Total 1000 ml Balance 2050 ml Intake Oral 50 ml IV Total 1500 ml Other 1500 ml Gastric Drainage Total 1000 ml # Voids 8 General: Alert, Oriented X3, Cooperative, No acute distress Abdomen: Soft, No tenderness, Other (incisision c/d/i) Problem List s/p lap hugo change to PO pain meds d/c NGT clears d/w pt and pt's father Justicifation of Admission Dx: Justifications for Admission: Justification of Admission Dx: Yes MIKE PERRIN MD Apr 28, 2020 16:23
[2020-04-28] MEDS ORDERED: SENNOSIDES/DOCUSATE 8.6/50MG TABLET. PO PRN (16:30)
[2020-04-28] MEDS: oxyCODONE IR 5 MG TABLET PO PRN (17:18)
[2020-04-28 19:00] VITALS: BP 120/84
[2020-04-28] MEDS: MORPHINE SULFATE 2 MG/ML VIAL. IV PRN (20:14)
[2020-04-28 23:00] VITALS: BP 125/64
[2020-04-29] MEDS: FAMOTIDINE 20 MG/2 ML VIAL IVP SCH ×3 (00:23→21:06)
[2020-04-29] MEDS: HEPARIN for SUB-Q USE 5,000 UNIT/ML VIAL. SQ SCH ×4 (00:35→21:09)
[2020-04-29] MEDS: IV RINGERS,LACTATED 1000ML 1,000 ML IV SCH ×3 (00:38→20:57)
[2020-04-29] MEDS: MORPHINE SULFATE 2 MG/ML VIAL. IV PRN ×3 (02:29→10:31)
[2020-04-29 03:00] VITALS: BP 106/74
[2020-04-29] MEDS: oxyCODONE IR 5 MG TABLET PO PRN ×4 (05:55→21:06)
[2020-04-29 07:00] VITALS: BP 102/77
[2020-04-29] MEDS: ONDANSETRON PF 4 MG/2 ML VIAL. IVP PRN ×2 (08:42→15:28)
[2020-04-29 11:00] VITALS: BP 105/76
[2020-04-29] MEDS ORDERED: OXYC5TAB4 PO (11:57)
--- NOTE | 2020-04-29 12:05 | PDOC ---
GENERAL General: Patient examined chart reviewed today is hospital day 5 for this young woman wi th longstanding severe gastroparesis admitted to Dr. Eason service for cholecystectomy and pyloroplasty. I am seeing her today in the company of her mother they are both upset because she has not had any nutrition since Friday of this week. Her surgery was Friday. She has not addressed this with Dr. Eason not sure why. Mother actually brought her home overnight TPN in and they are asking me to order that at this point as the patient is feeling shaky and weak from no nutrition for several days. I do not see any issue with doing that and have ordered that at this point spoke with nurse at the bedside. They are also asking for adjustment of the pain medicine which she promises as usual she will taper completely off of. She has not been on chronic narcotics only in the perioperative period. I told her that I was comfortable writing for 7 days of oxycodone 10 mg every 4-6 hours 28 tablets and she can speak with her primary care physician and general surgeon about pain medication from there. They were agreeable to this plan. They are also hoping for discharge today and are looking forward to speaking with Dr. Eason. They would like to switch the TPN ordering over to his service given the trouble with the current plan as an outpatient. Thank you to Dr. Eason for involving us in the care of this interesting patient. Time spent today is 30 minutes with greater than 50% in counseling and coordination of care most of which in discussion with patient. Problems: (1) Gastroparesis VITAL SIGNS Vital Signs/I&O: Vital Signs Date Time Temp Pulse Resp B/P (MAP) Pulse Ox O2 Delivery O2 Flow Rate FiO2 04/29/20 11:00 98.1 91 18 105/76 (86) 98 Room Air 98.1 04/29/20 05:55 2.0 I & O 04/28/20 04/28/20 04/29/20 15:00 23:00 07:00 Output Total 250 ml Balance -250 ml In general the patient is pleasant somewhat agitated about her situation alert and oriented x3 no acute distress HEENT exam is unremarkable Chest is clear to auscultation Heart S1-S2 normal regular rate and rhythm no murmurs or gallops are noted Abdomen well-healing surgical wounds soft nontender nondistended Extremity exam is unremarkable ALLERGIES Allergies: Allergies Coded Allergies Type Severity Reaction Last Updated Verified iohexol Allergy Severe ANAPHYLAXIS 04/25/20 Yes acetaminophen Allergy Intermediate Itching 04/25/20 Yes fentanyl Allergy Intermediate Hives 04/25/20 Yes hydrocodone Allergy Intermediate Itching 04/25/20 Yes metoclopramide Adverse Reaction Intermediate severe depression 04/25/20 Yes MEDS Medications: Current Medications Medications (Trade) Dose Ordered Sig/Esteban Route PRN Reason Start Time Stop Time Status Last Admin Dose Admin Oxycodone HCl (Roxicodone) 5 mg PRN Q6HRS PRN PO PAIN 04/28/20 16:30 04/29/20 11:53 DC 04/29/20 05:55 Morphine Sulfate (Morphine Sulfate) 1 mg PRN Q1HR PRN IV PAIN 04/28/20 19:45 04/29/20 11:53 DC 04/29/20 10:31 ASSESSMENT & PLAN A&P Plan as noted above This note was created using [employer] and may have omissions and/or errors due to the nature of real-time voice licensed physical therapy assistant. Justifications for Admission Other Justification TIFFANI MCLEAN MD Apr 29, 2020 12:05
[2020-04-29 12:50] LABS: BASO % 1 % (0-3); EOS # 0.6 x10^3/uL (0.0-0.7); EOS % 13 % (0-3); HEMATOCRIT 31.5 % (36.0-47.0); HEMOGLOBIN 10.9 g/dL (12.0-15.5); LYMPH # 1.7 x10^3/uL (1.0-4.8); LYMPH % 34 % (24-48); MEAN CORPUSCULAR HEMOGLOBIN 29 pg (25-35); MEAN CORPUSCULAR HGB CONC 35 g/dL (31-37); MEAN CORPUSCULAR VOLUME 84 fL (79-100); MONO # 0.3 x10^3/uL (0.0-1.1); MONO % 6 % (0-9); NEUT # 2.3 x10^3/uL (1.8-7.7); NEUT % 47 % (31-73); PLATELET COUNT 218 x10^3/uL (140-400); RED BLOOD COUNT 3.74 x10^6/uL (3.50-5.40); RED CELL DISTRIBUTION WIDTH 13.4 % (11.5-14.5); WHITE BLOOD COUNT 4.9 x10^3/uL (4.0-11.0)
[2020-04-29 13:16] LABS: ALBUMIN 3.2 g/dL (3.4-5.0); CALCIUM 8.9 mg/dL (8.5-10.1); CREATININE 0.5 mg/dL (0.6-1.0); GFR 143.9; MAGNESIUM 1.8 mg/dL (1.8-2.4); PHOSPHORUS 3.5 mg/dL (2.6-4.7); POTASSIUM 3.8 mmol/L (3.5-5.1); TOTAL BILIRUBIN 0.5 mg/dL (0.2-1.0); TOTAL PROTEIN 6.3 g/dL (6.4-8.2)
[2020-04-29] MEDS: IV NORMAL SALINE 1000ML BAG 1,000 ML IV SCH (13:30)
[2020-04-29] MEDS ORDERED: [UNRECOGNIZED DRUG - OTHER] IV ONE (14:00)
--- NOTE | 2020-04-29 14:41 | PDOC ---
SURGICAL PROGRESS NOTE DATE: 04/29/20 TIME: 14:40 Subjective Pt feels better, amanda clears, passing flatus Vital Signs Vital Signs Date Time Temp Pulse Resp B/P (MAP) Pulse Ox O2 Delivery O2 Flow Rate FiO2 04/29/20 13:50 Room Air 04/29/20 11:00 98.1 91 18 105/76 (86) 98 98.1 04/29/20 05:55 2.0 I&O Intake and Output 04/29/20 06:59 Output Total 250 ml Balance -250 ml Output Urine Total 250 ml # Voids 4 General: Alert, Oriented X3, Cooperative, No acute distress Abdomen: Soft, No tenderness, Other (incisions healing nicely) Labs Laboratory Tests Test 04/29/20 12:40 White Blood Count 4.9 x10^3/uL (4.0-11.0) Red Blood Count 3.74 x10^6/uL (3.50-5.40) Hemoglobin 10.9 g/dL (12.0-15.5) Hematocrit 31.5 % (36.0-47.0) Mean Corpuscular Volume 84 fL (79-100) Mean Corpuscular Hemoglobin 29 pg (25-35) Mean Corpuscular Hemoglobin Concent 35 g/dL (31-37) Red Cell Distribution Width 13.4 % (11.5-14.5) Platelet Count 218 x10^3/uL (140-400) Neutrophils (%) (Auto) 47 % (31-73) Lymphocytes (%) (Auto) 34 % (24-48) Monocytes (%) (Auto) 6 % (0-9) Eosinophils (%) (Auto) 13 % (0-3) Basophils (%) (Auto) 1 % (0-3) Neutrophils # (Auto) 2.3 x10^3/uL (1.8-7.7) Lymphocytes # (Auto) 1.7 x10^3/uL (1.0-4.8) Monocytes # (Auto) 0.3 x10^3/uL (0.0-1.1) Eosinophils # (Auto) 0.6 x10^3/uL (0.0-0.7) Basophils # (Auto) 0.0 x10^3/uL (0.0-0.2) Sodium Level 139 mmol/L (136-145) Potassium Level 3.8 mmol/L (3.5-5.1) Chloride Level 103 mmol/L (98-107) Carbon Dioxide Level 29 mmol/L (21-32) Anion Gap 7 (6-14) Blood Urea Nitrogen 3 mg/dL (7-20) Creatinine 0.5 mg/dL (0.6-1.0) Estimated GFR (Cockcroft-Gault) 143.9 BUN/Creatinine Ratio 6 (6-20) Glucose Level 126 mg/dL (70-99) Calcium Level 8.9 mg/dL (8.5-10.1) Phosphorus Level 3.5 mg/dL (2.6-4.7) Magnesium Level 1.8 mg/dL (1.8-2.4) Total Bilirubin 0.5 mg/dL (0.2-1.0) Aspartate Amino Transf (AST/SGOT) 9 U/L (15-37) Alanine Aminotransferase (ALT/SGPT) 19 U/L (14-59) Alkaline Phosphatase 55 U/L (46-116) Total Protein 6.3 g/dL (6.4-8.2) Albumin 3.2 g/dL (3.4-5.0) Albumin/Globulin Ratio 1.0 (1.0-1.7) Triglycerides Level 97 mg/dL (0-150) Laboratory Tests Test 04/29/20 12:40 White Blood Count 4.9 x10^3/uL (4.0-11.0) Red Blood Count 3.74 x10^6/uL (3.50-5.40) Hemoglobin 10.9 g/dL (12.0-15.5) Hematocrit 31.5 % (36.0-47.0) Mean Corpuscular Volume 84 fL (79-100) Mean Corpuscular Hemoglobin 29 pg (25-35) Mean Corpuscular Hemoglobin Concent 35 g/dL (31-37) Red Cell Distribution Width 13.4 % (11.5-14.5) Platelet Count 218 x10^3/uL (140-400) Neutrophils (%) (Auto) 47 % (31-73) Lymphocytes (%) (Auto) 34 % (24-48) Monocytes (%) (Auto) 6 % (0-9) Eosinophils (%) (Auto) 13 % (0-3) Basophils (%) (Auto) 1 % (0-3) Neutrophils # (Auto) 2.3 x10^3/uL (1.8-7.7) Lymphocytes # (Auto) 1.7 x10^3/uL (1.0-4.8) Monocytes # (Auto) 0.3 x10^3/uL (0.0-1.1) Eosinophils # (Auto) 0.6 x10^3/uL (0.0-0.7) Basophils # (Auto) 0.0 x10^3/uL (0.0-0.2) Sodium Level 139 mmol/L (136-145) Potassium Level 3.8 mmol/L (3.5-5.1) Chloride Level 103 mmol/L (98-107) Carbon Dioxide Level 29 mmol/L (21-32) Anion Gap 7 (6-14) Blood Urea Nitrogen 3 mg/dL (7-20) Creatinine 0.5 mg/dL (0.6-1.0) Estimated GFR (Cockcroft-Gault) 143.9 BUN/Creatinine Ratio 6 (6-20) Glucose Level 126 mg/dL (70-99) Calcium Level 8.9 mg/dL (8.5-10.1) Phosphorus Level 3.5 mg/dL (2.6-4.7) Magnesium Level 1.8 mg/dL (1.8-2.4) Total Bilirubin 0.5 mg/dL (0.2-1.0) Aspartate Amino Transf (AST/SGOT) 9 U/L (15-37) Alanine Aminotransferase (ALT/SGPT) 19 U/L (14-59) Alkaline Phosphatase 55 U/L (46-116) Total Protein 6.3 g/dL (6.4-8.2) Albumin 3.2 g/dL (3.4-5.0) Albumin/Globulin Ratio 1.0 (1.0-1.7) Triglycerides Level 97 mg/dL (0-150) Problem List s/p jenifer hugo will ADAT d/w hospitalist and appreciate aid d/w pt and pt's family plan D/c home in AM Justicifation of Admission Dx: Justifications for Admission: Justification of Admission Dx: Yes MIKE PERRIN MD Apr 29, 2020 14:41
[2020-04-29 14:57] VITALS: BP 97/71
[2020-04-29] MEDS: HYDROmorphone 2 MG/ML VIAL IVP PRN ×3 (19:38→22:51)
[2020-04-29 19:45] VITALS: BP 111/71
[2020-04-29 23:24] VITALS: BP 120/81
[2020-04-30] MEDS: HYDROmorphone 2 MG/ML VIAL IVP PRN (01:10)
[2020-04-30] MEDS: ONDANSETRON PF 4 MG/2 ML VIAL. IVP PRN (01:10)
[2020-04-30] MEDS: oxyCODONE IR 5 MG TABLET PO PRN ×3 (01:47→10:09)
[2020-04-30 04:45] VITALS: BP 111/77
[2020-04-30] MEDS: IV RINGERS,LACTATED 1000ML 1,000 ML IV SCH (04:57)
[2020-04-30] MEDS: HEPARIN for SUB-Q USE 5,000 UNIT/ML VIAL. SQ SCH (06:08)
[2020-04-30 06:27] LABS: CALCIUM 8.9 mg/dL (8.5-10.1); CREATININE 0.7 mg/dL (0.6-1.0); GFR 97.6; MAGNESIUM 1.9 mg/dL (1.8-2.4); POTASSIUM 3.2 mmol/L (3.5-5.1)
[2020-04-30 07:00] VITALS: BP 98/69
[2020-04-30] MEDS ORDERED: FAMOTIDINE 20 MG TABLET. PO SCH (10:00)
--- NOTE | 2020-04-30 10:28 | PDOC3 ---
Discharge Summary Visit Information Date of Admission: Apr 25, 2020 Date of Discharge: Apr 30, 2020 Admitting Diagnosis: gastroparesis Brief Hospital Course Allergies Allergies Coded Allergies Type Severity Reaction Last Updated Verified iohexol Allergy Severe ANAPHYLAXIS 04/25/20 Yes acetaminophen Allergy Intermediate Itching 04/25/20 Yes fentanyl Allergy Intermediate Hives 04/25/20 Yes hydrocodone Allergy Intermediate Itching 04/25/20 Yes metoclopramide Adverse Reaction Intermediate severe depression 04/25/20 Yes Vital Signs Vital Signs Date Time Temp Pulse Resp B/P (MAP) Pulse Ox O2 Delivery O2 Flow Rate FiO2 04/30/20 10:09 Room Air 04/30/20 07:45 2.0 04/30/20 07:00 98.1 96 18 98/69 (79) 94 98.1 Lab Results Laboratory Tests Test 04/29/20 12:40 04/30/20 05:53 White Blood Count 4.9 x10^3/uL (4.0-11.0) Red Blood Count 3.74 x10^6/uL (3.50-5.40) Hemoglobin 10.9 g/dL (12.0-15.5) Hematocrit 31.5 % (36.0-47.0) Mean Corpuscular Volume 84 fL (79-100) Mean Corpuscular Hemoglobin 29 pg (25-35) Mean Corpuscular Hemoglobin Concent 35 g/dL (31-37) Red Cell Distribution Width 13.4 % (11.5-14.5) Platelet Count 218 x10^3/uL (140-400) Neutrophils (%) (Auto) 47 % (31-73) Lymphocytes (%) (Auto) 34 % (24-48) Monocytes (%) (Auto) 6 % (0-9) Eosinophils (%) (Auto) 13 % (0-3) Basophils (%) (Auto) 1 % (0-3) Neutrophils # (Auto) 2.3 x10^3/uL (1.8-7.7) Lymphocytes # (Auto) 1.7 x10^3/uL (1.0-4.8) Monocytes # (Auto) 0.3 x10^3/uL (0.0-1.1) Eosinophils # (Auto) 0.6 x10^3/uL (0.0-0.7) Basophils # (Auto) 0.0 x10^3/uL (0.0-0.2) Sodium Level 139 mmol/L (136-145) 138 mmol/L (136-145) Potassium Level 3.8 mmol/L (3.5-5.1) 3.2 mmol/L (3.5-5.1) Chloride Level 103 mmol/L (98-107) 102 mmol/L (98-107) Carbon Dioxide Level 29 mmol/L (21-32) 27 mmol/L (21-32) Anion Gap 7 (6-14) 9 (6-14) Blood Urea Nitrogen 3 mg/dL (7-20) 9 mg/dL (7-20) Creatinine 0.5 mg/dL (0.6-1.0) 0.7 mg/dL (0.6-1.0) Estimated GFR (Cockcroft-Gault) 143.9 97.6 BUN/Creatinine Ratio 6 (6-20) Glucose Level 126 mg/dL (70-99) 105 mg/dL (70-99) Calcium Level 8.9 mg/dL (8.5-10.1) 8.9 mg/dL (8.5-10.1) Phosphorus Level 3.5 mg/dL (2.6-4.7) 4.0 mg/dL (2.6-4.7) Magnesium Level 1.8 mg/dL (1.8-2.4) 1.9 mg/dL (1.8-2.4) Total Bilirubin 0.5 mg/dL (0.2-1.0) Aspartate Amino Transf (AST/SGOT) 9 U/L (15-37) Alanine Aminotransferase (ALT/SGPT) 19 U/L (14-59) Alkaline Phosphatase 55 U/L (46-116) Total Protein 6.3 g/dL (6.4-8.2) Albumin 3.2 g/dL (3.4-5.0) Albumin/Globulin Ratio 1.0 (1.0-1.7) Triglycerides Level 97 mg/dL (0-150) Laboratory Tests Test 04/29/20 12:40 04/30/20 05:53 White Blood Count 4.9 x10^3/uL (4.0-11.0) Red Blood Count 3.74 x10^6/uL (3.50-5.40) Hemoglobin 10.9 g/dL (12.0-15.5) Hematocrit 31.5 % (36.0-47.0) Mean Corpuscular Volume 84 fL (79-100) Mean Corpuscular Hemoglobin 29 pg (25-35) Mean Corpuscular Hemoglobin Concent 35 g/dL (31-37) Red Cell Distribution Width 13.4 % (11.5-14.5) Platelet Count 218 x10^3/uL (140-400) Neutrophils (%) (Auto) 47 % (31-73) Lymphocytes (%) (Auto) 34 % (24-48) Monocytes (%) (Auto) 6 % (0-9) Eosinophils (%) (Auto) 13 % (0-3) Basophils (%) (Auto) 1 % (0-3) Neutrophils # (Auto) 2.3 x10^3/uL (1.8-7.7) Lymphocytes # (Auto) 1.7 x10^3/uL (1.0-4.8) Monocytes # (Auto) 0.3 x10^3/uL (0.0-1.1) Eosinophils # (Auto) 0.6 x10^3/uL (0.0-0.7) Basophils # (Auto) 0.0 x10^3/uL (0.0-0.2) Sodium Level 139 mmol/L (136-145) 138 mmol/L (136-145) Potassium Level 3.8 mmol/L (3.5-5.1) 3.2 mmol/L (3.5-5.1) Chloride Level 103 mmol/L (98-107) 102 mmol/L (98-107) Carbon Dioxide Level 29 mmol/L (21-32) 27 mmol/L (21-32) Anion Gap 7 (6-14) 9 (6-14) Blood Urea Nitrogen 3 mg/dL (7-20) 9 mg/dL (7-20) Creatinine 0.5 mg/dL (0.6-1.0) 0.7 mg/dL (0.6-1.0) Estimated GFR (Cockcroft-Gault) 143.9 97.6 BUN/Creatinine Ratio 6 (6-20) Glucose Level 126 mg/dL (70-99) 105 mg/dL (70-99) Calcium Level 8.9 mg/dL (8.5-10.1) 8.9 mg/dL (8.5-10.1) Phosphorus Level 3.5 mg/dL (2.6-4.7) 4.0 mg/dL (2.6-4.7) Magnesium Level 1.8 mg/dL (1.8-2.4) 1.9 mg/dL (1.8-2.4) Total Bilirubin 0.5 mg/dL (0.2-1.0) Aspartate Amino Transf (AST/SGOT) 9 U/L (15-37) Alanine Aminotransferase (ALT/SGPT) 19 U/L (14-59) Alkaline Phosphatase 55 U/L (46-116) Total Protein 6.3 g/dL (6.4-8.2) Albumin 3.2 g/dL (3.4-5.0) Albumin/Globulin Ratio 1.0 (1.0-1.7) Triglycerides Level 97 mg/dL (0-150) Brief Hospital Course Ms. Starkey is a 29 old F who presented with gastroparesis. She underwent laparoscopic cholecystectomy with cholangiogram, pyloroplasty. She gradually improved and was stable for d/c home on day of d/c, tolerating PO and passing flatus. Discharge Information Follow Up: Weeks (2) Disposition/Orders: D/C to Home Scheduled Lidocaine (Lidocaine PATCH ) 1 Each Adh..patch, 1 EACH TP DAILY for FOR LOCAL PAIN, (Reported) REMOVE AFTER 12 HOURS Entered as Reported by: ERIN ESTRADA on 04/20/201431 Last Action: New Order on 04/20/201431 by ERIN ESTRADA Omeprazole (Omeprazole) 40 Mg Capsule.dr, 1 CAP PO DAILY for nausea/gasroparesis, #30 Ref 3 (Reported) Entered as Reported by: ERIN ESTRADA on 04/20/201430 Last Taken: Unknown Dose on 04/24/20 Last Action: Last Taken Edited on 04/25/20 09 by LAZARUS ALEXANDER Ondansetron Hcl (Zofran) 4 Mg Tablet, 1 TAB PO PRN Q6-8HRS for nausea/gastroparesis, #5 (Reported) Entered as Reported by: ERIN ESTRADA on 04/20/201430 Last Taken: Unknown Dose on 04/25/20 0400 Last Action: Last Taken Edited on 04/25/20925 by LAZARUS ALEXANDER Promethazine Hcl (Promethazine Hcl) 25 Mg Tablet, 1 TAB PO PRN Q6HRS for nausea, #20 (Reported) Entered as Reported by: ERIN ESTRADA on 04/20/201431 Last Taken: not sure of dose on 04/24/20 Last Action: Last Taken Edited on 04/25/20925 by LAZARUS ALEXANDER Scheduled PRN Ibuprofen (Ibuprofen) 800 Mg Tablet, 800 MG PO PRN Q6HRS PRN for INFLAMMATION, (Reported) Entered as Reported by: ERIN ESTRADA on 04/20/201429 Last Taken: Unknown Dose on 04/24/20 Last Action: Last Taken Edited on 04/25/20925 by LAZARUS ALEXANDER Oxycodone Hcl (Oxycodone Hcl) 5 Mg Capsule, 5 MG PO PRN Q6HRS PRN for PAIN, Ref 0 (Reported) Entered as Reported by: ERIN ESTRADA on 04/20/201429 Last Taken: Unknown Dose on 04/24/20 Last Action: Last Taken Edited on 04/25/20925 by LAZARUS ALEXANDER Oxycodone Hcl (Oxycodone Hcl Immed.release ) 5 Mg Tablet, 10 MG PO PRN Q4HRS PRN for PAIN for 7 Days, #28 Prescribed by: TIFFANI MCLEAN on 04/29/20 1157 Justicifation of Admission Dx: Justifications for Admission: Justification of Admission Dx: Yes MIKE PERRIN MD Apr 30, 2020 10:27
[2020-04-30 10:36] VITALS: BP 88/59
--- NOTE | 2020-04-30 11:19 | NUR ---
Patient discharged today. Patient is stable and understand discharge instruction and script given to patient. I walked down with patient to the car safely.
== END 2020-04-30 11:49 | disposition home or self-care (01) | DRG 327 ==
LOC: OPSVCIP 08:53 → MERGE 10:45 → EDUNIT# 10:45 → 4 SOUTHEST 14:40 → 4 NORTH 04-26 18:51
PROVIDERS: ADMIT Surgery; ATTEND Surgery
PROC: 0DQ70ZZ Repair Stomach, Pylorus, Open Approach (ICD-10-PCS; 2020-04-25)
PROC: BF141ZZ Fluoroscopy of Gallbladder, Bile Ducts and Pancreatic Ducts using Low Osmolar Contrast (ICD-10-PCS; 2020-04-25)
PROC: 0FT44ZZ Resection of Gallbladder, Percutaneous Endoscopic Approach (ICD-10-PCS; principal; 2020-04-25 09:30)
PROC: 02PYX3Z Removal of Infusion Device from Great Vessel, External Approach (ICD-10-PCS; 2020-04-26)
PROC: 02H633Z Insertion of Infusion Device into Right Atrium, Percutaneous Approach (ICD-10-PCS; 2020-04-26)
PROC: B5181ZA Fluoroscopy of Superior Vena Cava using Low Osmolar Contrast, Guidance (ICD-10-PCS; 2020-04-26)
DX: K31.84 Gastroparesis (principal); Q43.8 Other specified congenital malformations of intestine; F41.9 Anxiety disorder, unspecified; H91.91 Unspecified hearing loss, right ear; Z79.891 Long term (current) use of opiate analgesic; Z88.8 Allergy status to other drugs, medicaments and biological substances; K82.8 Other specified diseases of gallbladder
CPT/HCPCS: 36415; 36584; 71045; 74018; 74300; 77001; 80048; 80053; 81025; 82962; 83735; 84100; 84478; 85025; C1751; C1769; C1892; J0330; J0694; J0780; J1100; J1170; J1200; J1644; J2060; J2250; J2270; J2370; J2405; J2704; J2710; J3010; J3490; J7030; J7120; Q9967; 97116-GP; 97530-GO; 97535-GO; G0378

== ENCOUNTER 2020-05-02 08:56 | Emergency (ER) | payer BC, OTHER ==
[~2020-05-02] VITALS: Ht 157.5 cm; Wt 52.2 kg
[~2020-05-02 08:56] MED LIST changes: -BISACODYL 10 MG SUPP.RECT. ONE; -BUPIVACAINE-EPI 0.5%-1:200000 MPF 30 ML VIAL. INJ ONE; -HEPARIN 1,000 UNIT in IV NORMAL SALINE 1,000 ML for SURG PERIOP IRR ONE; -IOHEXOL 300 MG/ML 50 ML VIAL. ONE; -IV RINGERS,LACTATED 1000ML 1,000 ML IV SCH; -LIDOCAINE 1% PF 2 ML VIAL. ID PRN; -MORPHINE SULFATE 2 MG/ML VIAL. IV PRN; -ONDANSETRON PF 4 MG/2 ML VIAL. IV PRN; +OXYC5TAB4 PO; -PROCHLORPERAZINE 10 MG/2 ML VIAL. IV PRN; -SURGICEL HEMOSTAT 4X8 EACH. ONE; -cefOXitin SODIUM IV Push 2 GM VIAL. IVP PRN; -fentaNYL PF VIAL 100 MCG/2 ML VIAL IV PRN
[2020-05-02] MEDS ORDERED: MORPHINE SULFATE 2 MG/ML VIAL. IV ONE (09:15)
[2020-05-02] MEDS ORDERED: PROCHLORPERAZINE 10 MG/2 ML VIAL. IV ONE (09:15)
[2020-05-02] MEDS ORDERED: IV NORMAL SALINE 1000ML BAG 1,000 ML IV ONE (09:15)
--- NOTE | 2020-05-02 09:17 | PHYS DOC ---
Past Medical History Smoking Status: Never Smoker General Adult EDM: Chief Complaint: CONTISPATION HPI: HPI: Patient is a 29 year old female who presents with April 25 had her gallbladder removed by Dr. Castillo. She states that she has not had a bowel movement for 9 to 10 days. She states she did not have a bowel movement for discharge. She states that Friday night she began having abdominal bloating, not being able to pass gas, increased abdominal pain, vomiting. She has been taking oxycodone at home for pain. She took 4 of Zofran at 7:00 this morning and she took oxycodone at 6:00 this morning. Rating her pain an 8 out of 10 states it is a bloating pressure type pain. Patient denies chest pain, fever, shortness of breath, diarrhea, headache, dizziness, numbness or tingling, focal weakness. Review of Systems: Review of Systems: Constitutional: Denies fever or chills. [] Eyes: Denies change in visual acuity. [] HENT: Denies nasal congestion or sore throat. [] Respiratory: Denies cough or shortness of breath. [] Cardiovascular: Denies chest pain or edema. [] GI: + abdominal pain, +nausea, +vomiting, +constipation, denies bloody stools or diarrhea. [] : Denies dysuria. [] Musculoskeletal: Denies back pain or joint pain. [] Integument: Denies rash. [] Neurologic: Denies headache, focal weakness or sensory changes. [] Endocrine: Denies polyuria or polydipsia. [] Lymphatic: Denies swollen glands. [] Psychiatric: Denies depression or anxiety. [] Heart Score: Risk Factors: Risk Factors: DM, Current or recent (<one month) smoker, HTN, HLP, family history of CAD, obesity. Risk Scores: Score 0 - 3: 2.5% MACE over next 6 weeks - Discharge Home Score 4 - 6: 20.3% MACE over next 6 weeks - Admit for Clinical Observation Score 7 - 10: 72.7% MACE over next 6 weeks - Early Invasive Strategies Allergies: Allergies: Allergies Coded Allergies Type Severity Reaction Last Updated Verified iohexol Allergy Severe ANAPHYLAXIS 04/25/20 Yes acetaminophen Allergy Intermediate Itching 04/25/20 Yes fentanyl Allergy Intermediate Hives 04/25/20 Yes hydrocodone Allergy Intermediate Itching 04/25/20 Yes metoclopramide Adverse Reaction Intermediate severe depression 04/25/20 Yes Physical Exam: PE: Constitutional: Well developed, well nourished, no acute distress, non-toxic appearance. [] HENT: Normocephalic, atraumatic, bilateral external ears normal, oropharynx moist, no oral exudates, nose normal. [] Eyes: PERRLA, EOMI, conjunctiva normal, no discharge. [] Neck: Normal range of motion, no tenderness, supple, no stridor. [] Cardiovascular:Heart rate regular rhythm, no murmur [] Lungs & Thorax: Bilateral breath sounds clear to auscultation [] Abdomen: Bowel sounds normal, soft, generalized tenderness, no masses, no pulsatile masses. [] Skin: Warm, dry, no erythema, no rash. [] Back: No tenderness, no CVA tenderness. [] Extremities: No tenderness, no cyanosis, no clubbing, ROM intact, no edema. [] Neurologic: Alert and oriented X 3, normal motor function, normal sensory function, no focal deficits noted. [] Psychologic: Affect normal, judgement normal, mood normal. [] EKG: EKG: [] Radiology/Procedures: Radiology/Procedures: [] Impression: [facility] [address] [place] [address] IMAGING REPORT Signed PATIENT: MINDY REEDER RACCOUNT: [id number] : 1990 LOCATION: ER AGE: 29 SEX: F EXAM STATUS: REG ER ORD. PHYSICIAN: MARION DOS SANTOS APRN REASON: post op surgery. no BM x 9 days, vomiting, pain PROCEDURE: CT ABDOMEN PELVIS WO CONTRAST CT scan abdomen and pelvis without contrast 05/02/2020 CLINICAL HISTORY: Postoperative abdominal pain. No bowel movements. TECHNIQUE: Unenhanced, contiguous, 5 mm axial sections were obtained through the abdomen and pelvis. One or more of the following individualized dose reduction techniques were utilized for this study: 1. Automated exposure control. 2. Adjustment of the mA and/or kV according to patient size. 3. Use of iterative reconstruction technique. Images through the lung bases demonstrate minimal dependent subsegmental atelectasis bilaterally. The liver, spleen, pancreas, and adrenal glands are within normal limits. Nonobstructing calculi are seen involving both kidneys. These measure 1 to 2 mm in size. The abdominal aorta tapers normally. Surgical clips are seen within the gallbladder fossa consistent with a cholecystectomy. High density contrast is seen throughout the colon which may be related to the patient's recent cholangiogram. A moderate amount stool is seen throughout the colon. There is no evidence of bowel obstruction. The cecum extends into the lower pelvis. The appendix is not visualized. No inflammatory changes are seen surrounding the cecum. Images through the pelvis demonstrate the urinary bladder to be contracted. An IUD is seen within the expected location the endometrial canal of the uterus. Calcifications are seen within the pelvis consistent with phleboliths. No adnexal mass is seen. No free fluid is noted. Very mild S-shaped curvature of the thoracolumbar spine is seen. IMPRESSION: No acute abnormality is seen. Electronically signed by: Angel Serra MD (05/02/2020 10:16 AM) [id number] DICTATED and SIGNED BY: ANGEL SERRA MD DATE: 05/02/20 [id number] 0 Course & Med Decision Making: Course & Med Decision Making Pertinent Labs and Imaging studies reviewed. (See chart for details) See HPI. Abdomen is soft and tender generalized. Incisions are healed and edges are approximated and healed together. No signs of infection or redness. There is no drainage. Patient states she cannot have contrast dye so a CT without contrast has been ordered. Vital signs are within normal limits. Bowel sounds are hypoactive. Skin pink warm and dry. Ambulatory with a steady gait. Speaks in full complete sentences. Alert and oriented x4. CT shows no acute findings besides constipation. Patient is given a liter of fluids and Compazine in the ER. She will be given a enema in the ER. She can also take mag citrate when she gets home. Patient did have a bowel movement in the ED after enema given. [] Dragon Disclaimer: Dragon Disclaimer: This electronic medical record was generated, in whole or in part, using a voice recognition dictation system. Departure Departure Impression: Primary Impression: Constipation Qualified Codes: K59.00 - Constipation, unspecified Disposition: 01 DC HOME SELF CARE/HOMELESS Condition: STABLE Referrals: SAENZ,JAKE A (PCP) Patient Instructions: Constipation, Adult Additional Instructions: Take the magnesium citrate when you get home. Try not to take the pain medication as it is highly constipating. Drink plenty of fluids. Scripts Magnesium Citrate (MAGNESIUM CITRATE) 296 Ml Solution 296 ML PO ONCE, #296 ML Prov: MARION DOS SANTOS APRN 05/02/20 MARION DOS SANTOS APRN May 02, 2020 09:17
[2020-05-02 09:33] LABS: BILIRUBIN,URINE NEGATIVE (NEG); CLARITY,URINE CLEAR; COLOR,URINE YELLOW; NITRITE,URINE NEGATIVE (NEG); PROTEIN,URINE NEGATIVE (NEG-TRACE); UROBILINOGEN,URINE 0.2 mg/dL (0.2 mg/dL)
[2020-05-02 09:35] LABS: BASO # 0.1 x10^3/uL (0.0-0.2); BASO % 1 % (0-3); EOS # 0.8 x10^3/uL (0.0-0.7); EOS % 16 % (0-3); HEMATOCRIT 32.9 % (36.0-47.0); HEMOGLOBIN 11.1 g/dL (12.0-15.5); LYMPH # 2.1 x10^3/uL (1.0-4.8); LYMPH % 40 % (24-48); MEAN CORPUSCULAR HEMOGLOBIN 29 pg (25-35); MEAN CORPUSCULAR HGB CONC 34 g/dL (31-37); MEAN CORPUSCULAR VOLUME 85 fL (79-100); MONO # 0.3 x10^3/uL (0.0-1.1); MONO % 7 % (0-9); NEUT # 1.9 x10^3/uL (1.8-7.7); NEUT % 37 % (31-73); PLATELET COUNT 243 x10^3/uL (140-400); RED BLOOD COUNT 3.86 x10^6/uL (3.50-5.40); RED CELL DISTRIBUTION WIDTH 13.3 % (11.5-14.5); WHITE BLOOD COUNT 5.1 x10^3/uL (4.0-11.0)
[2020-05-02 09:39] LABS: CALCIUM 9.2 mg/dL (8.5-10.1); CREATININE 0.7 mg/dL (0.6-1.0); GFR 97.6; POTASSIUM 3.5 mmol/L (3.5-5.1)
[2020-05-02 09:40] LABS: BACTERIA,URINE FEW /HPF (0-FEW)
[2020-05-02 09:45] LABS: ALBUMIN 3.5 g/dL (3.4-5.0); ALBUMIN/GLOBULIN RATIO 1.2 (1.0-1.7); TOTAL BILIRUBIN 0.5 mg/dL (0.2-1.0); TOTAL PROTEIN 6.5 g/dL (6.4-8.2)
--- NOTE | 2020-05-02 10:18 | RAD ---
CT scan abdomen and pelvis without contrast 05/02/2020 CLINICAL HISTORY: Postoperative abdominal pain. No bowel movements. TECHNIQUE: Unenhanced, contiguous, 5 mm axial sections were obtained through the abdomen and pelvis. One or more of the following individualized dose reduction techniques were utilized for this study: 1. Automated exposure control. 2. Adjustment of the mA and/or kV according to patient size. 3. Use of iterative reconstruction technique. Images through the lung bases demonstrate minimal dependent subsegmental atelectasis bilaterally. The liver, spleen, pancreas, and adrenal glands are within normal limits. Nonobstructing calculi are seen involving both kidneys. These measure 1 to 2 mm in size. The abdominal aorta tapers normally. Surgical clips are seen within the gallbladder fossa consistent with a cholecystectomy. High density contrast is seen throughout the colon which may be related to the patient's recent cholangiogram. A moderate amount stool is seen throughout the colon. There is no evidence of bowel obstruction. The cecum extends into the lower pelvis. The appendix is not visualized. No inflammatory changes are seen surrounding the cecum. Images through the pelvis demonstrate the urinary bladder to be contracted. An IUD is seen within the expected location the endometrial canal of the uterus. Calcifications are seen within the pelvis consistent with phleboliths. No adnexal mass is seen. No free fluid is noted. Very mild S-shaped curvature of the thoracolumbar spine is seen. IMPRESSION: No acute abnormality is seen. Electronically signed by: Angel Serra MD (05/02/2020 10:16 AM) [id number]
[2020-05-02] MEDS ORDERED: DOCUSATE SODIUM 283 MG/5 ML ENEMA. PR ONE (10:30)
[2020-05-02] MEDS ORDERED: MAGN296S68 PO (10:40)
[2020-05-02 11:04] VITALS: BP 104/62
== END 2020-05-02 11:30 | disposition home or self-care (01) ==
LOC: ER 08:56
DX: K59.00 Constipation, unspecified (principal); R11.2 Nausea with vomiting, unspecified; R10.9 Unspecified abdominal pain; Z88.5 Allergy status to narcotic agent; Z88.6 Allergy status to analgesic agent; Z88.8 Allergy status to other drugs, medicaments and biological substances
CPT/HCPCS: 36415; 74176; 80053; 81001; 81025; 83690; 85025; 96361; 96374; 96375; 99284; J0780; J2270; J7030